=== PATIENT | female | born 1930 | race Caucasian/White ===

== ENCOUNTER 2018-04-09 20:17 | Inpatient (IN) ==
[2018-04-10] MEDS ORDERED: Acetaminophen 325 MG TABLET PO PRN (02:30)
[2018-04-10] MEDS ORDERED: *HR* FentaNYL (PF) 100 MCG/2 ML VIAL IVP PRN (02:30)
[2018-04-10] MEDS ORDERED: Naloxone 0.4 MG/ML INJ IVP PRN (02:30)
--- NOTE | 2018-04-10 03:08 | Internal Med History&Physical ---
Date of Encounter: 04/10/18 Time of Encounter: 01:15 Internal Medicine - H&P: HPI Chief complaint: hip pain/fracture Admitted From: Hospital to Hospital Transfer Plans for Post Hospital Care: Transfer Inp Rehab Fac History of present illness: Ms. MEDINA is a 88 year old female who presents in transfer from [facility] ER after she was found to have a left intertrochanteric fracture on CT imaging of her hip. She was seen last week at the ER after sustaining a fall while walking her dog. X-ray imaging at that point was negative. She was discharged home and remained ambulatory despite having injured her hip. Her pain became extremely unbearable, especially over the last 24 hours. Therefore, her daughter brought her back to the ER tonight where they did CT imaging and found the hip fracture. She was transferred here to hospitalist service with orthopedic consult. Presently, she has good pain control and denies any problems. She has minimal medical history other than hypertension and hyperlipidemia. She denies any heart disease. She denies any exertional dyspnea or chest pain. Past Med Surg Social Fam HX - Past Medical History Attestation: Yes The following information was validated with the patient. Source: patient, old records reviewed, obtained from family Medical history: hyperlipidemia, hypertension Psychiatric history: no psych history - Past Surgical History Surgical History: appendectomy, hysterectomy Additional surgical history: lasik eye surgery 2009 - Social History Smoking Status: Never smoker Smokeless Tobacco Status: No Alcohol use: none Drug use: none Current living situation: Home, With Family Activity Level: Independent ambulation Recent Out of Country Travel Within the Last 8 Weeks: No - Family History Father History Unknown: Yes Living Status: Hx Family Cardiac Disorders: Yes ( of a stroke) Internal Medicine - H&P: Meds Atorvastatin [Lipitor] 10 mg PO DAILY 04/10/18 [History] Ibuprofen [Ibu] 600 mg PO Q6HR PRN 04/10/18 [History] amLODIPine [Norvasc] 5 mg PO DAILY 04/10/18 [History] traZODone [TraZODone] 0.5 tab PO HS 04/10/18 [History] 3 Allergy/AdvReac Type Severity Reaction Status Date / Time Sulfa (Sulfonamide Allergy Unknown Rash Verified 04/10/18 00:17 Antibiotics) - Constitutional Constitutional: no chills, no fever(s), no night sweats - EENT Eyes: no blurry vision, no change in vision Ears: no ear pain, no tinnitus Nose, mouth and throat: no nasal congestion, no sinus pressure, no sore throat - Cardiovascular Cardiovascular ROS IM: no chest pain, no dyspnea, no dyspnea on exertion, no lightheadedness, no orthopnea, no palpitations, no syncope - Respiratory Respiratory: no cough, no hemoptysis, no chest congestion, no excessive phlegm production, no change in phlegm color - Gastrointestinal Gastrointestinal: no abdominal pain, no diarrhea, no hematemesis, no hematochezia, no melena, no nausea, no vomiting - Genitourinary Genitourinary: no dysuria, no flank pain, no hematuria - Musculoskeletal Musculoskeletal ROS IM: arthralgias, limited range of motion, no back pain Additional comments: left hip pain/limited ROM - Integumentary Integumentary IM: no rash, no jaundice - Neurological Neurological ROS: frequent falls, no convulsions, no disequilibrium, no dizziness, no focal weakness, no headache(s), no vertigo - Psychiatric Psychiatric: no anxiety, no depression - Endocrine Endocrine IM: no cold intolerance, no heat intolerance, no polydipsia, no polyphagia, no polyuria - Allergic/Immunologic Allergic/Immunologic: no GI upset with certain foods - Constitutional Vitals: Temp Pulse Resp BP Pulse Ox 97.8 F 91 16 157/79 94 04/10/18 00:13 04/10/18 00:13 04/10/18 00:13 04/10/18 00:13 04/10/18 00:13 General appearance: Present: cooperative, mild distress, A&O X 3, pleasant, answers questions appropriately Exam: see below - Head Head exam: Present: atraumatic, normal inspection - Eye Eye exam: Present: EOMI, PERRL. Absent: scleral icterus Pupils: Present: normal accommodation - ENT ENT exam: Present: mucous membranes dry, normal oropharynx - Neck Neck exam general surgery: Present: full ROM, supple. Absent: tenderness, nuchal rigidity, thyromegaly - Expanded Neck Exam Neck exam: Absent: carotid bruit - Respiratory Respiratory exam: Present: CTAB. Absent: chest wall tenderness, rales, respiratory distress, rhonchi, wheezes - Cardiovascular Cardiovascular exam: Present: RRR, +S1, +S2, systolic murmur (grade 2 -3 type murmur). Absent: diastolic murmur - GI/Abdominal GI/Abdominal exam: Present: normal bowel sounds, soft. Absent: hepatomegaly, mass, tenderness - Extremities Exam Extremities exam: Present: normal capillary refill, tenderness (left hip), warm , radial pulses palpable and symmetrical. Absent: pedal edema - Neurological Exam Neurological exam: Present: alert, CN II-XII intact, oriented X3, no focal deficits - Psychiatric Psychiatric exam: Present: normal affect, normal mood - Skin Skin exam: Present: dry, warm. Absent: rash Internal Med - H&P Results - Labs Labs: I reviewed the labs from [place] include the following: WBC 15.2 Hemoglobin 14.0 Hematocrit 41.5 Platelets 294 Sodium 137 Potassium 3.8 Chloride 101 Carbon Dioxide 25 Glucose 145 BUN 16 Creatinine 0.72 EKG normal sinus rhythm with no acute findings CT scan pelvis showing left intertrochanteric fracture - Assessment and plan (1) Fracture, intertrochanteric, left femur Current Visit: Yes Status: Acute Assessment and plan: 1. Pain control with oral [place] (moderate) and Fentanyl IV (severe). 2. Consult Dr. Wilder for surgical repair. 3. Patient will need inpatient rehab after surgery. Qualifiers: Encounter type: initial encounter Fracture type: closed Fracture alignment: displaced Qualified Code(s): S72.142A - Displaced intertrochanteric fracture of left femur, initial encounter for closed fracture (2) Murmur Current Visit: Yes Status: Chronic Assessment and plan: 1. Patient denies known history of murmur. 2. Will order ECHO to evaluate for possible aortic stenosis. 3. If patient has evidence of on ECHO, recommend cardiology consultation prior to proceeding with surgery. (3) Hypertension Current Visit: Yes Status: Chronic Assessment and plan: 1. Resume home meds and monitor BP. 2. Adjust meds as necessary. Qualifiers: Hypertension type: essential hypertension Qualified Code(s): I10 - Essential (primary) hypertension (4) DVT prophylaxis Current Visit: Yes Status: Acute Assessment and plan: 1. Heparin SQ.
[2018-04-10 03:57] LABS: Basophils # 0.1 K/mcL (0.0-0.2); Basophils % 0.6 %; Eosinophils # 0.1 K/mcL (0.0-0.6); Eosinophils % 1.1 %; Hematocrit 36.5 % (35.3-44.9); Hemoglobin 12.6 g/dL (11.5-15.4); Immature Granulocytes % 0.4 % (0-4); Lymphocytes # 2.8 K/mcL (0.6-4.6); Lymphocytes % 21.9 %; Mean Corpuscular HGB Conc 34.5 g/dL (31.6-35.5); Mean Corpuscular Hemoglobin 29.6 pg (28.0-33.3); Mean Corpuscular Volume 85.7 fL (83.0-100.0); Mean Platelet Volume 10.1 fL (9.4-12.4); Monocytes % 7.5 %; Neutrophils # 8.6 K/mcL (1.6-8.9); Platelet Count 265 K/mcL (140-400); Red Blood Count 4.26 M/mcL (3.82-4.97); Red Cell Distribution Width 13.6 % (11.5-14.5); Segmented Neutrophils % 68.5 %
[2018-04-10 04:05] LABS: Prothrombin Time 11.2 Seconds (9.4-12.1)
[2018-04-10 04:08] LABS: Activated Partial Thrombo Time 27.3 Seconds (26.0-36.0)
[2018-04-10 04:16] LABS: Alanine Aminotransferase 10 Units/L (7-52); Albumin 3.9 g/dL (3.5-5.7); Albumin/Globulin Ratio 1.3 (1.1-2.2); Alkaline Phosphatase 83 Units/L (34-104); Aspartate Amino Transferase 16 Units/L (13-39); BUN/Creatinine Ratio 24 (6-26); Bilirubin,Total 0.6 mg/dL (0.3-1.0); Blood Urea Nitrogen 13 mg/dL (8-23); Calcium 9.1 mg/dL (8.6-10.3); Carbon Dioxide 25 mEq/L (23-29); Chloride 101 mEq/L (98-107); Globulin 2.9 g/dL (2.4-3.5); Glucose 115 mg/dL (70-105); Magnesium 1.7 mg/dL (1.6-2.6); Osmolality,Calculated 279 (280-300); Sodium 134 mEq/L (136-145); Total Protein 6.8 g/dL (6.4-8.9); eGFR For Non-African Americans > 60 (> 60)
[2018-04-10] MEDS: *HR* HYDROcodone/Acet 5/325 mg TABLET PO PRN ×2 (04:31→17:45)
[2018-04-10] MEDS: 0.9 % Sodium Chloride 1,000 ML IVC SCH ×2 (04:31→17:42)
[2018-04-10] MEDS: *HR* Heparin 5,000 UNIT/ML VIAL SQ SCH ×2 (04:31→17:42)
[2018-04-10] MEDS: amLODIPine 5 MG TABLET PO SCH (08:10)
--- NOTE | 2018-04-10 08:28 | Event Note ---
Date of Encounter: 04/10/18 Time of Encounter: 09:15 Pt transferred here with Left hip fx.. pmhx htn, hld Ortho consulted and eval pending Found on admitting exam to have heart murmur. Pt comfortable in bed with daughter present. Nopain currently, + pain with movement. no cp, sob, palpitations, presyncope or syncope history. Overall feeling well and awaiting ortho eval gen- awake, alert, nad eyes- pupils equal round, eom intact cv- rrr, normal s1s2, + systolic murmur 3/6, no le edema no jvd lugs - ctabl , no rhonchi, wheezing or crackles msk- LLE shortened with ext rotation a/p Left hip fracture, pain control, bedrest, ortho eval New dx heart murmur- requires pre op echo to assess further, may require cards eval preop pending result HTN/hld - cont home meds Mild leukocytosis likely reactive, afebrile, ros neg for s/s of infection, cont to monitor Hypokalemia K 3.0- 40 meq PO kcl and recheck K level and a mag level this afternoon
--- NOTE | 2018-04-10 12:24 | Orthopedic Consult Note ---
Date of Encounter: 04/10/18 Time of Encounter: 12:13 History of Present Illness Chief complaint: Left hip pain HPI: Ms. Avelar is a 88 year old female who sustained an injury to her left hip when she fell on 04/03/18. She sustained a mechanical fall while walking her dog. At that time she was seen at [facility]. X-rays were performed that failed to reveal a fracture. She also had a CT exam performed at that time there was also not definitive for fracture. Patient persisted in having left hip pain over the past week. Its unsure if she had a second fall but had worsening of the left hip pain and return to [facility] yesterday. X-ray was taken followed by CT scan and the fracture was identified. It was reported the patient had a nondisplaced intertrochanteric fracture. She was transferred to [facility] for definitive management. Completed history and physical exam is reviewed as well as the contents of the formal medical record. Vital signs are stable. Patient is afebrile. Examination reveals a pleasant 88 -year-old woman in no distress while lying in the hospital bed. Left lower extremity is remarkably shortened with mild external rotation. Pain is elicited with any attempts examination of the extremity. Distal neurosensory exam is grossly intact. I reviewed x-rays from [facility] from [id number] , these reveal some arthritic changes but no definitive hip fracture. A CT scan from the same date is also not definitive for fracture. There are some findings to suggest fracture, a valgus head position and subtle cortical changes and irregularities in the posterior superior neck. The patient does have significant lumbar spondylosis with tremendous degenerative disc disease with vacuum phenomena. X-rays from yesterday, [id number] reveal a displaced femoral neck fracture with marked shortening and proximal migration of the shaft. CT scan confirms these findings. Impression: Displaced left femoral neck fracture Recommendation: I had a long discussion with the patient and her daughters in regards to the fracture and the treatment options. This is a surgical fracture and my recommendation would be to proceed with a hemiarthroplasty of the hip versus any attempts at reduction and fixation. They understand that this is a more involved surgical procedure would allow her to begin full weightbearing ambulation and avoid any risks of nonunion or avascular necrosis associated with screw fixation of the hip. We discussed the surgery at length including the potential risks and complications but not limited to bleeding, infection, blood clots, nerve injury, stiffness, leg length or rotational deformities or even possible dislocation. They all understand and agree with the surgery as outlined. Informed consent was obtained. We will schedule her for surgery tomorrow morning. The patient is currently having an echocardiogram performed due to a newly diagnosed murmur. If the patient is not optimized for surgery would delay as needed. Thank you very much for allowing me to see and care for Mrs. Avelar. Sincerely , Braden Wilder.DO Past Med Surg Social Fam HX - Past Medical History Medical history: hyperlipidemia, hypertension Psychiatric history: no psych history - Past Surgical History Surgical History: appendectomy, hysterectomy Additional surgical history: lasik eye surgery 2009 - Social History Smoking Status: Never smoker Smokeless Tobacco Status: No Alcohol use: none Drug use: none - Family History Father History Unknown: Yes Living Status: Hx Family Cardiac Disorders: Yes ( of a stroke) Medications and Allergies Atorvastatin [Lipitor] 10 mg PO DAILY 04/10/18 [History] Ibuprofen [Ibu] 600 mg PO Q6HR PRN 04/10/18 [History] amLODIPine [Norvasc] 5 mg PO DAILY 04/10/18 [History] traZODone [TraZODone] 0.5 tab PO HS 04/10/18 [History] 3 Allergy/AdvReac Type Severity Reaction Status Date / Time Sulfa (Sulfonamide Allergy Unknown Rash Verified 04/10/18 00:17 Antibiotics) All Systems Reviewed: The remainder of the systems were reviewed and are negative Physical Exam - Constitutional Vitals: Temp Pulse Resp BP Pulse Ox 98.3 F 81 16 136/79 93 04/10/18 10:56 04/10/18 10:56 04/10/18 10:56 04/10/18 10:56 04/10/18 10:56 Results - Labs Result Diagrams: 04/10/18 03:42 04/10/18 03:42 Labs: Abnormal lab results WBC 12.6 K/mcL (4.3-11.1) H 04/10/18 03:42 Sodium 134 mEq/L (136-145) L 04/10/18 03:42 Potassium 3.0 mEq/L (3.5-5.1) L 04/10/18 03:42 Creatinine 0.55 mg/dL (0.60-1.20) L 04/10/18 03:42 Glucose 115 mg/dL (70-105) H 04/10/18 03:42 Calculated Osmolality 279 (280-300) L 04/10/18 03:42 H & H 04/10/18 Range/Units 03:42 Hgb 12.6 (11.5-15.4) g/dL Hct 36.5 (35.3-44.9) % All other labs normal. - Diagnostic results Hip AP/Lateral x-ray: image reviewed Hip CT: image reviewed Consult Discharge Plan - Plan Referrals: Nitesh Martinez [Primary Care Provider] -
[2018-04-10 13:20] LABS: Magnesium 1.7 mg/dL (1.6-2.6); Potassium 3.6 mEq/L (3.5-5.1)
[2018-04-11 02:08] LABS: Basophils # 0.1 K/mcL (0.0-0.2); Basophils % 0.8 %; Eosinophils # 0.3 K/mcL (0.0-0.6); Eosinophils % 2.3 %; Hematocrit 37.5 % (35.3-44.9); Hemoglobin 12.8 g/dL (11.5-15.4); Immature Granulocytes % 0.3 % (0-4); Lymphocytes # 3.1 K/mcL (0.6-4.6); Lymphocytes % 23.3 %; Mean Corpuscular HGB Conc 34.1 g/dL (31.6-35.5); Mean Corpuscular Hemoglobin 29.6 pg (28.0-33.3); Mean Corpuscular Volume 86.8 fL (83.0-100.0); Mean Platelet Volume 10.6 fL (9.4-12.4); Monocytes # 1.1 K/mcL (0.0-1.3); Monocytes % 8.5 %; Neutrophils # 8.5 K/mcL (1.6-8.9); Platelet Count 281 K/mcL (140-400); Red Blood Count 4.32 M/mcL (3.82-4.97); Red Cell Distribution Width 13.6 % (11.5-14.5); Segmented Neutrophils % 64.8 %
[2018-04-11 02:27] LABS: BUN/Creatinine Ratio 19 (6-26); Blood Urea Nitrogen 10 mg/dL (8-23); Carbon Dioxide 26 mEq/L (23-29); Chloride 103 mEq/L (98-107); Glucose 113 mg/dL (70-105); Magnesium 1.7 mg/dL (1.6-2.6); Osmolality,Calculated 284 (280-300); Potassium 3.3 mEq/L (3.5-5.1); Sodium 137 mEq/L (136-145); eGFR For Non-African Americans > 60 (> 60)
[2018-04-11] MEDS: *HR* HYDROcodone/Acet 5/325 mg TABLET PO PRN ×2 (04:08→08:14)
[2018-04-11] MEDS: amLODIPine 5 MG TABLET PO SCH (08:07)
--- NOTE | 2018-04-11 08:10 | Cardiology Consult Note ---
Date of Encounter: 04/11/18 Time of Encounter: 08:07 Assessment and Plan (1) Preoperative cardiovascular examination Current Visit: Yes Status: Acute Patient with left hip fracture and reasonable functional status. Although unclear if she could perform more than 4 METs prior to sustaining the fracture. She has no active cardiac conditions at this time. EKG shows sinus rhythm with non specific ST-T changes. Her echocardiogram shows EF of 65%, moderately calcified aortic valve leaflets. Moderate aortic stenosis with valve area of 1.4 cm, peak gradients of 24mmHg. She is at low to intermediate risk for cardiac events perioperatively. She may proceed with surgery with acceptable risks. Recommend cautious fluid managements and post-operative surveillance. Replace electrolytes. Hold amlodipine on the morning of surgery. (2) Hypertension Current Visit: Yes Status: Chronic Continue amlodipine and hold on the morning of surgery. Blood pressure goal 130 mmHg - 150mmHg systolic. Qualifiers: Hypertension type: essential hypertension Qualified Code(s): I10 - Essential (primary) hypertension (3) Moderate aortic stenosis Current Visit: Yes Status: Acute Moderate aortic stenosis with peak gradients of 24mmHg and valve area of 1.4cm2. She is asymptomatic at this time. Repeat echo in 6-12 months. (4) HLD (hyperlipidemia) Current Visit: Yes Status: Chronic Continue statin. Qualifiers: Qualified Code(s): E78.5 - Hyperlipidemia, unspecified Discussion w patient/family: The assessment and plan as outlined above was discussed with the patient and/or family members who expressed understanding and agreement. All questions were answered. Thank you for involving us in the care of your patient. Please call with any questions. History of Present Illness Consult date: 04/11/18 Requesting physician: Zarina Whitmore Consult reason: Preop cardiac evaluation Chief complaint: Hip fracture History of present illness: Ms. Avelar is a 88 year old pleasant female with hx of hypertension, hyperlipidemia, mild cognitive dysfunction, admitted for left intertrochanteric fracture after sustaining a mechanical fall about a week ago. S she denies she denies chest pain or palpitations prior to falling. Family says patient's is able to walk her dog's and on take care of ADLs. As at last year when she was still living at senior home she was able to climb up 2 flights of stairs. She has no history of coronary artery disease. Her last surgery was in 1970 for section/hysterectomy. Past Med Surg Social Fam HX - Past Medical History Medical history: hyperlipidemia, hypertension Psychiatric history: no psych history - Past Surgical History Surgical History: appendectomy, hysterectomy Additional surgical history: lasik eye surgery 2009 - Social History Smoking Status: Never smoker Smokeless Tobacco Status: No Alcohol use: none Drug use: none - Family History Father History Unknown: Yes Living Status: Hx Family Cardiac Disorders: Yes ( of a stroke) Medications and Allergies Atorvastatin [Lipitor] 10 mg PO DAILY 04/10/18 [History] Ibuprofen [Ibu] 600 mg PO Q6HR PRN 04/10/18 [History] amLODIPine [Norvasc] 5 mg PO DAILY 04/10/18 [History] traZODone [TraZODone] 0.5 tab PO HS 04/10/18 [History] 3 Allergy/AdvReac Type Severity Reaction Status Date / Time Sulfa (Sulfonamide Allergy Unknown Rash Verified 04/10/18 00:17 Antibiotics) All Systems Review: The remainder of the systems were reviewed and are negative - Constitutional Constitutional: no anorexia, no fever(s), no weakness - EENT Eyes: no loss of vision Nose, mouth and throat: no bleeding gums, no odynophagia - Cardiovascular Cardiovascular: no chest pain at rest, no chest pain with exertion, no irregular heart rhythm, no palpitations, no syncope - Respiratory Respiratory: no cough, no wheezing - Gastrointestinal Gastrointestinal: no abdominal pain - Genitourinary Genitourinary: no dysuria - Musculoskeletal Musculoskeletal: no abnormal gait - Integumentary Integumentary: no erythema - Neurological Neurological: no abnormal speech - Psychiatric Psychiatric: no anxiety Physical Examination General: Conversant HEENT: Atraumatic Neck: No JVD Cardiac: Reg Rate and Rhythm, Other (grade 3/6, ejection systolic murmur at the base radiating to the carotid. Soft A2) Lungs: Normal Breath Sounds, No Wheeze, Rales, Rhonchi Neuro: Alert and responsive Abdomen: Soft, Non-Tender Musculoskeletal: No Chest Wall Tenderness Extremities: No Edema Results 04/11/18 01:05 04/11/18 01:05 Lab Results 04/10/18 04/11/18 04/11/18 12:51 01:05 01:05 WBC 13.1 H Hgb 12.8 Hct 37.5 Plt Count 281 INR 1.0 Sodium Potassium 3.6 Chloride Carbon Dioxide BUN Creatinine Glucose Calcium Magnesium 1.7 04/11/18 01:05 WBC Hgb Hct Plt Count INR Sodium 137 Potassium 3.3 L Chloride 103 Carbon Dioxide 26 BUN 10 Creatinine 0.53 L Glucose 113 H Calcium 9.0 Magnesium 1.7 Consult Discharge Plan - Plan Referrals: Nitesh Martinez [Primary Care Provider] -
--- NOTE | 2018-04-11 08:32 | Internal Med Progress Note ---
Hospitalist Progress Note - Encounter Date of Encounter: 04/11/18 Time of Encounter: 10:15 - Subjective Interval History: awake, family at bedside. painwith any movmeent of hip otherwise no complaints. pain controlled with ordered meds. no cp, palitations, sob, wheezing or orthopnea. no le edema. - Exam Vitals: Temp Pulse Resp BP Pulse Ox 98.2 F 108 17 152/74 93 04/11/18 08:08 04/11/18 08:08 04/11/18 08:08 04/11/18 08:08 04/11/18 08:12 Exam: General: awake, alert, appears stated age HEENT:pupils equal, round, moist mucus membranes Neck: supple, trachea midline Cardiovascular:regular rate and rhythm, normal S1 & S2, + SM iii/vi. No JVD. no lower extremity edema, dp/pt pulses intact and equal Lungs:Normal breath sounds, no wheezes, or crackles. Normal respiratory effort on ra Abdomen:Soft, non-tender, non-distended, + bowel sounds MSK: LLE shortened and ext rotated, rom not tested Neurological: AAOx3, BL LE sensatio nintact and equal to lt touch Skin:Normal color, no pallor - Assessment and Plan (1) Fracture, intertrochanteric, left femur Current Visit: Yes Status: Acute Assessment and Plan: -ortho following -OR 04/11 pending cards clearance -prn pain control -post op care as per ortho -pt.ot.sw (2) Murmur Current Visit: Yes Status: Acute Assessment and Plan: Systolic Murmur 2/2 Moderate -echo obtained and revealed EF of 65%, moderately calcified aortic valve leaflets. Moderate aortic stenosis with peak and mean gradients of 24mmHg 12mmHg mmHg, respectively -cards contacted for pre op eval - may proceed with surgery with acceptable risks, CAUTIOUS POST OP FLUID MANAGEMENT -this pt SHOULD NOT RECEIVE NITRATES given (3) Hypertension Current Visit: Yes Status: Chronic Assessment and Plan: -cont home norvasc -monito bp trends -prn pain control (4) HLD (hyperlipidemia) Current Visit: Yes Status: Chronic Assessment and Plan: cont statin (5) Leukocytosis Current Visit: Yes Status: Acute Assessment and Plan: suspect reactive given fx, mild WBC 12.6 will cont to monitor ros is neg for s/s or infection, afebrile (6) Hypokalemia Current Visit: Yes Status: Acute Assessment and Plan: PO repletion and cont to monitor mag wnl (7) DVT prophylaxis Current Visit: Yes Status: Acute Assessment and Plan: Heparin SQ. - Time Spent with Patient Total time spent is greater than 50% in coordination of care (as documented) at patient's floor/unit and/or counseling patient: Internal Medicine: Result - Labs CBC & Chem 7: 04/11/18 01:05 04/11/18 01:05 Labs: Short CBC 04/11/18 Range/Units 01:05 WBC 13.1 H (4.3-11.1) K/mcL Hgb 12.8 (11.5-15.4) g/dL Hct 37.5 (35.3-44.9) % Plt Count 281 (140-400) K/mcL Neutrophils # 8.5 (1.6-8.9) K/mcL BMP 04/10/18 04/11/18 12:51 01:05 Sodium 137 Potassium 3.6 3.3 L Chloride 103 Carbon Dioxide 26 BUN 10 Creatinine 0.53 L Glucose 113 H Calcium 9.0 - ABG Interpretation ABG results: PT/INR, D-dimer PT 11.0 Seconds (9.4-12.1) 04/11/18 01:05 - Impressions Impressions Echocardiogram 04/10/18 02:30 Impressions: LVEF 65% Mild concentric left ventricular hypertrophy. Basal sigmoid septum. Mild left ventricular diastolic dysfunction. Normal right ventricular structure and function. Trileaflet aortic valve. Moderately calcified aortic valve leaflets. Moderate aortic stenosis with peak and mean gradients of 24mmHg 12mmHg mmHg, respectively. Unable to estimate RVSP due to lack of TR jet. Left Ventricular Wall Motion: Rest Echo Findings All wall segments showed normal motion. Findings: Study Quality * Technically adequate exam. ECG Findings * Normal sinus rhythm. Left Ventricle * LVEF 65% * Mild concentric left ventricular hypertrophy. * Basal sigmoid septum. * Mild left ventricular diastolic dysfunction. Right Ventricle * Normal right ventricular structure and function. Left Atrium * Normal left atrial size. Right Atrium * Normal right atrial size. Interatrial Septum * No evidence of PFO by color Doppler. Aortic Valve * Trileaflet aortic valve. * Moderately calcified aortic valve leaflets. * Moderate aortic stenosis. * Peak and mean gradients are 24mmHg 12mmHg mmHg, respectively. Mitral Valve * Normal mitral valve structure and function. * No mitral regurgitation. * No mitral stenosis. Tricuspid Valve * Normal tricuspid valve structure and function. * No tricuspid regurgitation. * No tricuspid stenosis. * Unable to estimate RVSP due to lack of TR jet. Pulmonic Valve * Normal pulmonic valve structure and function. * No pulmonic regurgitation. Aorta * Normally sized aortic root. Pericardium * There is a trivial pericardial effusion present. IVC * Normal IVC dimensions and inspiratory collapse. Pulmonary Artery * Normal visualized portions of the main pulmonary artery. Consult Discharge Plan - Plan Referrals: Nitesh Martinez [Primary Care Provider] - (1) Fracture, intertrochanteric, left femur Qualifiers: Encounter type: initial encounter Fracture type: closed Fracture alignment: displaced Qualified Code(s): S72.142A - Displaced intertrochanteric fracture of left femur, initial encounter for closed fracture (3) Hypertension Qualifiers: Hypertension type: essential hypertension Qualified Code(s): I10 - Essential (primary) hypertension
[2018-04-11] MEDS ORDERED: Potassium Chloride Elixir 20 MEQ/15 ML UDC PO ONE (08:34)
--- NOTE | 2018-04-11 12:51 | Anesthesia Evaluation PreOp ---
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 Other Medical History: Denies Any Significant HX Anesthesia History: No Prior Anesthetic Complications, Past Anesthesia Alcohol Use: none Drug use: none Medications and Allergies Atorvastatin [Lipitor] 10 mg PO DAILY 04/10/18 [History] Ibuprofen [Ibu] 600 mg PO Q6HR PRN 04/10/18 [History] amLODIPine [Norvasc] 5 mg PO DAILY 04/10/18 [History] traZODone [TraZODone] 0.5 tab PO HS 04/10/18 [History] 3 Allergy/AdvReac Type Severity Reaction Status Date / Time Sulfa (Sulfonamide Allergy Unknown Rash Verified 04/10/18 00:17 Antibiotics) - Meds/Allergy Pre-op Review Medications Reviewed: Yes Allergies Reviewed: Yes Beta Blockers on Current Med List: No Anesthesia Results - Labs 04/11/18 01:05 04/11/18 01:05 - Imaging Additional studies: ECHO 65%, AV area 1.3 Record Center Specialist clearance, minimal risk for surgery. Anesthesia Exam Selected Entries 04/11/18 11:16 Temperature 97.6 F Pulse Rate 79 Respiratory Rate 16 Blood Pressure 131/72 O2 Sat by Pulse Oximetry 96 Weight: 60 kg NPO (# of Hours): over 8 hours - HEENT Pupil (Motor): Pupils equal Mallampati: I Teeth: Edentulous Oral Opening: Greater than 3 - Cardiac Rhythm: Regular Murmur: None - Pulmonary Breath Sounds: bilateral Clear Respiratory Effort: Symmetrical Anesthesia Assess/Plan ASA Score: 3 Modified Kane Scale for Level of Consciousness: Cooperative, oriented, and tranquil Anesthetic Plan: General Monitoring Plan: Standard Monitors Recovery Plan: PACU (Discussed GA, risks. Agreed to proceed.)
[2018-04-11] MEDS ORDERED: *HR* FentaNYL (PF) 100 MCG/2 ML VIAL ONE (13:36)
[2018-04-11] MEDS ORDERED: *HR* Succinylcholine 200 MG/10 ML VIAL IVP ONE (13:36)
[2018-04-11] MEDS ORDERED: *HR* Propofol 200 MG/20 ML VIAL IVP ONE (13:36)
[2018-04-11] MEDS ORDERED: Ondansetron 4 MG/2 ML VIAL ONE (13:36)
[2018-04-11] MEDS ORDERED: Lidocaine -MPF 2% 2 ML VIAL ONE (13:36)
[2018-04-11] MEDS ORDERED: *HR* Phenylephrine 10 MG/ML VIAL ONE (13:36)
[2018-04-11] MEDS ORDERED: Lidocaine -MPF 4% 5 ML AMPUL ONE (13:36)
[2018-04-11] MEDS ORDERED: *HR* PHENYLEPHRINE 1,000 MCG/10 ML SYRINGE IVP ONE (13:36)
[2018-04-11] MEDS ORDERED: Dexamethasone 4 MG/ML VIAL ONE (13:36)
[2018-04-11] MEDS ORDERED: Ondansetron 4 MG/2 ML VIAL IVP ONE ×2 (14:04→16:22)
[2018-04-11] MEDS ORDERED: *HR* OxyCODONE Immed Rel 5 MG TABLET PO PRN ×2 (14:04→16:22)
[2018-04-11] MEDS ORDERED: *HR* Morphine 2 MG/ML SYRINGE IVP PRN ×2 (14:04→16:22)
[2018-04-11] MEDS ORDERED: *HR* Labetalol 20 MG/4 ML SYRINGE IVP PRN ×2 (14:04→16:22)
[2018-04-11] MEDS ORDERED: Ringers Solution, Lactated 1,000 ML IVC SCH (14:15)
--- NOTE | 2018-04-11 16:02 | Operative Note ---
Date of procedure: 04/11/18 Pre-op diagnosis: Left femoral neck fracture Post-op diagnosis: same Procedure: Hemiarthroplasty left hip Implants: Cemented Fouzia 12 LD/FX femoral component with a 10 mm distal centralizer, neutral neck adapter and a 46 mm unipolar endoprosthesis Complications: None Anesthesia: ELISA Surgeon: Braden Wilder Was there an salon shampoo assistant present: No Estimated blood loss (cc): 200 Specimen: None Condition: stable Disposition: PACU Procedure in Detail: Gross findings: Preoperative x-rays and CT scan revealed a displaced fracture of the left femoral neck in this 88-year-old female. Some osteoporotic changes noted. Intraoperative findings were as anticipated with a displaced femoral neck fracture identified. Some tearing away of the gluteus medius superiorly and the gluteus minimus inferiorly was noted. Some prominent spurring on the trochanter was identified. There was some comminution of the posterior neck. A cemented unipolar hemiarthroplasty was performed without complicating features. After placement of the prosthesis a stable well-functioning hip was noted without any tendencies toward subluxation or dislocation. Procedure: Patient is taken the operating room and while the hospital bed was administered general anesthesia. Once adequate level of anesthesia have been obtained patient was transferred to the operating table and placed in the lateral recumbent position with the left side up. She was stabilized with a lateral hip stabilizing system with all pressure points well-padded. Left hip was now prepped and draped in normal standard fashion for surgery. A lateral hip incision was created. Dissection was carried through subtendinous tissue down the level of fascia gagan which was now clear to split length the incision. Charnley retractor was placed maintaining exposure. At this time the anterior abductors were taken down off the trochanter with subperiosteal manner utilizing electrocautery knife. These were tagged with #2 FiberWire suture for traction of later repair. Capsule was likewise taken down off the trochanter and superior capsulotomy was made up the level of the acetabulum. Fracture hematoma was encountered and evacuated. Neck osteotomy was made. Femoral head was now removed from the acetabulum and sized to a probably a 45 or 46. Acetabulum was irrigated and debrided with pulsatile lavage and mechanical debridement. Final sizing was performed and a 46 mm head size was selected. Attention was now turned to the femur. Box osteotome was utilized to open up the medial trochanter. T-handled reamers passed down the femoral canal. The femur was now rasped up to and including the size 12 rasp with sat just about the level of the osteotomy. Calcar was reamed with power reamers. Trialing was performed and a neutral neck length was appropriate. All trial components removed from the hip. Hip was packed with a dry sponge. Cement restrictor was placed about 140 mm and then the femoral canal was irrigated with pulsatile lavage and then dried with a combination of suction and sponges. Cement was mixed and at appropriate time the cement was instilled into the femur which was filled in a retrograde manner and then pressurized proximally. The femoral component was then placed into the cement and impacted until it sat with the collar firmly on the medial femoral calcar neutral position. Excess cement was trimmed away. Cement was allowed to fully hardened. Final cement cleanup was performed. This is followed by placing the adapter and the femoral head onto the femoral component and impacted with 3 sharp blows of the mallet. Hip was now reduced and a stable reduction was obtained. Capsulotomy was closed with #2 FiberWire. The bare area on the trochanter was debrided to cancellus bone. Prominent spurs on the trochanter were resected with rongeur. The abductors were then repaired back to the trochanter with previously placed #2 FiberWire suture and reinforced with running #2 strata fix. Fascia gagan was then closed with several [id number] stitch of #2 FiberWire followed by running #2 strata fix. Deep subtendinous tissue was closed with running #1 Vicryl. Medius obtained his tissues and closed with multiple inverted interrupted 2-0 undyed Vicryl followed by skin approximation with a running septic her stitches of 3-0 strata fix.. Skin glue was applied. Operative foam was now applied and secured. Patient was now placed into a abduction pillow. Patient was then transferred from the operating table hospital bed and transported to the postanesthesia care unit in stable and satisfactory condition. All sponge needle and isthmic counts are correct. No specimens are sent for pathology.
[2018-04-11] MEDS ORDERED: Acetaminophen 325 MG TABLET PO PRN (16:22)
[2018-04-11] MEDS ORDERED: Naloxone 0.4 MG/ML INJ IVP PRN (16:22)
--- NOTE | 2018-04-11 16:27 | Anesthesia Evaluation Post Op ---
Date of Encounter: 04/11/18 Time of Encounter: 16:30 - Vital Signs Vital Signs: P 100 B/P 172/95, 95% - Lungs Lungs: Clear Ascult./Percussion - Airway Airway: Non-obstructed - Cardiovascular Regular Rate - Mental Status Mental Status: Confused - Nausea Vomiting Nausea Vomiting: Not Present - Hydration Hydration: NPO Notes: 04/11/18 16:26 Slightly confused. Thinks she is in [place]. This level of confusion not unusual in this age group. - Discharge PostOp Status: Transfer Patient to floor
[2018-04-11] MEDS: Ringers Solution, Lactated 1,000 ML IVC SCH ×2 (16:38→20:07)
[2018-04-11] MEDS ORDERED: Menthol 9.1 MG LOZENGE PO PRN (23:28)
[2018-04-12] MEDS: *HR* HYDROcodone/Acet 5/325 mg TABLET PO PRN ×3 (01:02→15:24)
[2018-04-12 02:01] LABS: Basophils % 0.2 %; Hematocrit 37.3 % (35.3-44.9); Hemoglobin 12.9 g/dL (11.5-15.4); Immature Granulocytes % 0.6 % (0-4); Lymphocytes # 0.8 K/mcL (0.6-4.6); Lymphocytes % 6.5 %; Mean Corpuscular HGB Conc 34.6 g/dL (31.6-35.5); Mean Corpuscular Hemoglobin 30.4 pg (28.0-33.3); Mean Platelet Volume 10.6 fL (9.4-12.4); Monocytes % 8.1 %; Neutrophils # 10.6 K/mcL (1.6-8.9); Platelet Count 276 K/mcL (140-400); Red Blood Count 4.24 M/mcL (3.82-4.97); Red Cell Distribution Width 13.2 % (11.5-14.5); Segmented Neutrophils % 84.6 %
[2018-04-12 02:24] LABS: BUN/Creatinine Ratio 22 (6-26); Blood Urea Nitrogen 13 mg/dL (8-23); Carbon Dioxide 27 mEq/L (23-29); Chloride 101 mEq/L (98-107); Glucose 160 mg/dL (70-105); Magnesium 1.7 mg/dL (1.6-2.6); Osmolality,Calculated 284 (280-300); Potassium 4.2 mEq/L (3.5-5.1); Sodium 135 mEq/L (136-145); eGFR For Non-African Americans > 60 (> 60)
[2018-04-12] MEDS: *HR* Heparin 5,000 UNIT/ML VIAL SQ SCH ×2 (06:13→17:59)
[2018-04-12] MEDS: amLODIPine 5 MG TABLET PO SCH (08:17)
--- NOTE | 2018-04-12 09:46 | Internal Med Progress Note ---
Hospitalist Progress Note - Encounter Date of Encounter: 04/12/18 Time of Encounter: 10:30 - Subjective Interval History: awake in chair. Left hip pain with motion. + flatus, no bms. Eating and drinking without n/v. Dneies any chest pain, sob, fevers or chills. - Exam Vitals: Temp Pulse Resp BP Pulse Ox 98.0 F 84 16 175/89 96 04/12/18 06:33 04/12/18 06:04/12/18 06:04/12/18 06:04/12/18 08:25 Exam: General: awake, alert, appears stated age HEENT:pupils equal, round, moist mucus membranes Cardiovascular:regular rate and rhythm, normal S1 & S2, + SM iii/vi. no lower extremity edema, dp/pt pulses intact and equal Lungs:Normal breath sounds, no wheezes, or crackles. Normal respiratory effort on ra Abdomen:Soft, non-tender, non-distended, + bowel sounds MSK: LLE pain with hip rom, otherwise painless Neurological: AAOxperson, place, situation, BL LE sensation intact and equal to lt touch Skin:Normal color, no pallor, left hip incision site dressing c/d/i, no ecchymosis - Assessment and Plan (1) Fracture, intertrochanteric, left femur Current Visit: Yes Status: Acute Assessment and Plan: -ortho following -OR 04/11 Hemiarthroplasty left hip -prn pain control -post op care as per ortho -pt.ot.sw (2) Murmur Current Visit: Yes Status: Acute Assessment and Plan: Systolic Murmur 2/2 Moderate -echo obtained and revealed EF of 65%, moderately calcified aortic valve leaflets. Moderate aortic stenosis with peak and mean gradients of 24mmHg 12mmHg mmHg, respectively -cards contacted for pre op eval - may proceed with surgery with acceptable risks, CAUTIOUS POST OP FLUID MANAGEMENT -this pt SHOULD NOT RECEIVE NITRATES given (3) Hypertension Current Visit: Yes Status: Chronic Assessment and Plan: -cont home norvasc -monitor bp trends -prn pain control -adjust home med as needed (4) HLD (hyperlipidemia) Current Visit: Yes Status: Chronic Assessment and Plan: cont statin (5) Leukocytosis Current Visit: Yes Status: Acute Assessment and Plan: suspect reactive given fx, mild WBC 12.6, stable ros is neg for s/s or infection, afebrile (6) Hypokalemia Current Visit: Yes Status: Resolved Assessment and Plan: PO repletion and resolved mag wnl (7) DVT prophylaxis Current Visit: Yes Status: Acute Assessment and Plan: Heparin SQ. - Time Spent with Patient Total time spent is greater than 50% in coordination of care (as documented) at patient's floor/unit and/or counseling patient: 25 - 35 minutes Plan of Care Discussed with: patient Internal Medicine: Result - Labs CBC & Chem 7: 04/12/18 00:48 04/12/18 00:48 Labs: Short CBC 04/12/18 Range/Units 00:48 WBC 12.6 H (4.3-11.1) K/mcL Hgb 12.9 (11.5-15.4) g/dL Hct 37.3 (35.3-44.9) % Plt Count 276 (140-400) K/mcL Neutrophils # 10.6 H (1.6-8.9) K/mcL BMP 04/12/18 00:48 Sodium 135 L Potassium 4.2 D Chloride 101 Carbon Dioxide 27 BUN 13 Creatinine 0.60 Glucose 160 H Calcium 9.0 - ABG Interpretation ABG results: PT/INR, D-dimer PT 11.0 Seconds (9.4-12.1) 04/11/18 01:05 - Impressions Impressions Hip X-Ray 04/11/18 15:56 IMPRESSION: Unremarkable left hip radiographs status post bipolar left hip arthroplasty. D/ / Archie Grajeda / Archie Grajeda Interpreting Provider: Archie Grajeda Consult Discharge Plan - Plan Referrals: Nitesh Martinez [Primary Care Provider] - (1) Fracture, intertrochanteric, left femur Qualifiers: Encounter type: initial encounter Fracture type: closed Fracture alignment: displaced Qualified Code(s): S72.142A - Displaced intertrochanteric fracture of left femur, initial encounter for closed fracture (3) Hypertension Qualifiers: Hypertension type: essential hypertension Qualified Code(s): I10 - Essential (primary) hypertension
--- NOTE | 2018-04-12 17:16 | Electrocardiograph Report ---
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
--- NOTE | 2018-04-12 17:47 | Electrocardiograph Report ---
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
--- NOTE | 2018-04-12 20:50 | Orthopedics Progress Note ---
Date of Encounter: 04/12/18 Time of Encounter: 20:46 Subjective Principal diagnosis: Left hip fracture Interval history: 04/12/2018. Patient is postop day #1 hemiarthroplasty of the left hip secondary to a displaced femoral neck fracture. Patient has been out of bed to chair. Limited ambulation thus far. Complaining of anticipated pain. Vital signs are stable. Patient is afebrile. Incision is clean and dry. Neurovascular exam is intact. Hemoglobin nearly 13. Impression: POD #1 hemiarthroplasty left hip Recommendation: Begin ambulation with weightbearing as tolerated. Need to maintain total hip arthroplasty precautions. Recheck labs in a.m. 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 Objective Vital signs: Vital Signs Temp Pulse Resp BP Pulse Ox 04/12/18 18:52 98.3 F 86 18 132/69 93 04/12/18 14:56 98.2 F 61 18 154/86 93 04/12/18 10:40 97.8 F 84 18 144/80 96 04/12/18 08:25 96 04/12/18 06:33 98.0 F 84 16 175/89 94 04/12/18 03:43 98.0 F 87 16 163/71 96 04/11/18 23:11 99.1 F 93 16 147/75 99 Intake and Output 04/12/18 04/12/18 04/12/18 07:59 15:59 23:59 Intake Total 1350 / 1350 120 / 120 Output Total 225 / 225 0 / 0 Balance 1125 / 1125 120 / 120 Intake: IV Fluids 1200 / 1200 Ancef 2,000 MG In 0.9 % Sodium 100 / 100 Chloride 100 ML @ 200 mls/hr IVPB Q8HR [facility] Rx#:[id number] Oral 150 / 150 120 / 120 Output: Urine 0 / 0 Catheter 225 / 225 Other: Meal Dinner Percent of Meal Consumed 85% # Voids 1 Weight 60.98 kg Patient Weight 04/12/18 23:59 Weight 60.98 kg - Labs CBC & BMP: 04/12/18 00:48 04/12/18 00:48 Labs: Abnormal lab results WBC 12.6 K/mcL (4.3-11.1) H 04/12/18 00:48 Neutrophils # 10.6 K/mcL (1.6-8.9) H 04/12/18 00:48 Sodium 135 mEq/L (136-145) L 04/12/18 00:48 Glucose 160 mg/dL (70-105) H 04/12/18 00:48 Consult Discharge Plan - Plan Referrals: Nitesh Martinez [Primary Care Provider] -
[2018-04-12] MEDS: *HR* FentaNYL (PF) 100 MCG/2 ML VIAL IVP PRN (21:25)
[2018-04-13 01:51] LABS: Basophils # 0.1 K/mcL (0.0-0.2); Basophils % 0.5 %; Eosinophils # 0.2 K/mcL (0.0-0.6); Eosinophils % 1.6 %; Hematocrit 33.5 % (35.3-44.9); Immature Granulocytes % 0.5 % (0-4); Lymphocytes # 2.3 K/mcL (0.6-4.6); Lymphocytes % 18.6 %; Mean Corpuscular HGB Conc 33.7 g/dL (31.6-35.5); Mean Corpuscular Hemoglobin 29.6 pg (28.0-33.3); Mean Corpuscular Volume 87.7 fL (83.0-100.0); Mean Platelet Volume 10.6 fL (9.4-12.4); Monocytes # 1.1 K/mcL (0.0-1.3); Monocytes % 8.7 %; Neutrophils # 8.8 K/mcL (1.6-8.9); Platelet Count 283 K/mcL (140-400); Red Blood Count 3.82 M/mcL (3.82-4.97); Red Cell Distribution Width 13.5 % (11.5-14.5); Segmented Neutrophils % 70.1 %
[2018-04-13 01:54] LABS: Hemoglobin 11.3 g/dL (11.5-15.4)
--- NOTE | 2018-04-13 03:08 | Event Note ---
Date of Encounter: 04/13/18 Time of Encounter: 03:06 Called to see patient for new onset atrial fibrillation w RVR. EKG reviewed and confirmed findings. BP stable. Patient denies CP or SOB. Cardizem bolus and drip started. Will monitor closely and adjust drip as needed. BMP, magnesium, and troponin ordered. Anti-coagulation per day team.
[2018-04-13] MEDS ORDERED: 0.9 % Sodium Chloride 250 ML ONE (03:37)
[2018-04-13 03:59] LABS: BUN/Creatinine Ratio 42 (6-26); Blood Urea Nitrogen 22 mg/dL (8-23); Carbon Dioxide 24 mEq/L (23-29); Chloride 101 mEq/L (98-107); Glucose 134 mg/dL (70-105); Magnesium 1.8 mg/dL (1.6-2.6); Osmolality,Calculated 285 (280-300); Potassium 3.6 mEq/L (3.5-5.1); Sodium 135 mEq/L (136-145); eGFR For Non-African Americans > 60 (> 60)
[2018-04-13 04:00] LABS: Troponin I 0.03 ng/mL (< 0.04)
[2018-04-13] MEDS: *HR* Heparin 5,000 UNIT/ML VIAL SQ SCH (05:14)
[2018-04-13] MEDS ORDERED: Isovue-370 500 ML INFUS..BTL IV ONE (05:23)
[2018-04-13] MEDS ORDERED: Potassium Chloride 40 MEQ, Lidocaine 1% 2 ML in D5% in Water 500 ML IVPB ONE (05:45)
[2018-04-13] MEDS: amLODIPine 5 MG TABLET PO SCH (07:56)
--- NOTE | 2018-04-13 10:14 | Internal Med Progress Note ---
<TerryGelacio - Last Filed: 04/13/18 15:26> Hospitalist Progress Note - Encounter Date of Encounter: 04/13/18 Time of Encounter: 10:12 - Subjective Interval History: Patient reports doing okay this morning. Pain at 5/10 severity. Patient has been participating with PT/OT regularly. Overnight patient had an episode of new afib with rvr in rate 130-150s and was started overnight on cardizem drip. Trop was negative. EKG was consistent with afib with rvr. Patient also had a complaint of abdominal pain, so a CT abd/pelvis was ordered. Denies chest pain , palpitaitons, or shortness of breath. Denies fevers, chills, sweats, nausea, vomiting, changes in bowels or bladder, weakness, or rash. - Exam Vitals: Temp Pulse Resp BP Pulse Ox 98.2 F 81 17 118/72 94 04/13/18 07:22 04/13/18 07:22 04/13/18 07:22 04/13/18 07:22 04/13/18 07:22 Exam: General: awake, alert, oriented x 3, no acute distress HEENT: Pupils equal round, moist mucus membranes CV: regular rate and rhythm, grade 2/6 systolic murmur. Lungs: CTAB, normal resp effort. Abdomen: soft, nontender, normal bowel sounds MSK: L hip tenderness with palpation and with rom, but improving, all other extremities normal, no edema Neuro: Strength 5/5 bilaterally, minimally weaker due to pain on left hip, normal sensation Skin: normal color, left hip dressing clean, dry, intact. - Assessment and Plan (1) Paroxysmal atrial fibrillation with RVR Current Visit: Yes Status: Acute Assessment and Plan: New onset afib with rvr, asymptomatic Overnight hr went to 130-150, confirmed on EKG afib with rvr. Heart rate controlled this morning on diltiazem drip. JESSICA-VASC2 = 5 for age, female, htn, and CHF with mild diastolic dysfunction noted on Echo during this hospitalization. Trop negative. -Discontinue Cardizem drip, start Cardizem CD 120mg. Discontinue norvasc. -Discuss anticoagulation options with patient and family, currently only on heparin dvt ppx, no aspirin. -Start Eliquis 5mg bid. -Cardiology consulted, signed off after recommendations. - (2) Fracture, intertrochanteric, left femur Current Visit: Yes Status: Acute Assessment and Plan: Displaced left femoral neck fracture on arrival POD 2 s/p Left hemiarthroplasty of left hip. (04/11/18) Pain controlled, currently 5/10 on current rgiment. -Continue with pain control prn -post op care per Ortho -Continue PT/OT, social work. (3) Moderate aortic stenosis Current Visit: Yes Status: Acute Assessment and Plan: Echo completed 04/10/18 due to systolic heart murmur: EF 65%, mild concentric LVH, basal sigmoid septum, mild LV diastolic dysfunction , normal RV, trileaflet aortic valve, moderately calcified aortic valve leaflets , moderate aortic stenosis with mean gradient 24mmHg and 12mmHg. -Avoid nitrates. (4) HLD (hyperlipidemia) Current Visit: Yes Status: Chronic Assessment and Plan: Continue with home med for chronic disease management. (5) Hypertension Current Visit: Yes Status: Chronic Assessment and Plan: Controlled, continue with norvasc home med (6) Abdominal pain Current Visit: Yes Status: Acute Assessment and Plan: Resolved currently. Abd exam unremarkable. Developed significant abdominal pain yesterday evening. CT abd/pelvis ordered and completed. Revealed no acute findings. Nodular foci adjacent or within gallbladder wall , colonic diverticulosis without diverticulitis, nonobstructing right renal stones. (7) DVT prophylaxis Current Visit: Yes Status: Acute Assessment and Plan: Continue with heparin sq - Time Spent with Patient Total time spent is greater than 50% in coordination of care (as documented) at patient's floor/unit and/or counseling patient: Internal Medicine: Result - Labs CBC & Chem 7: 04/13/18 00:59 04/13/18 13:01 Labs: Short CBC 04/13/18 Range/Units 00:59 WBC 12.6 H (4.3-11.1) K/mcL Hgb 11.3 L D (11.5-15.4) g/dL Hct 33.5 L (35.3-44.9) % Plt Count 283 (140-400) K/mcL Neutrophils # 8.8 (1.6-8.9) K/mcL BMP 04/13/18 03:21 Sodium 135 L Potassium 3.6 Chloride 101 Carbon Dioxide 24 BUN 22 Creatinine 0.53 L Glucose 134 H Calcium 9.0 Cardiac Enzymes 04/13/18 Range/Units 03:21 Troponin I 0.03 (< 0.04) ng/mL - ABG Interpretation ABG results: PT/INR, D-dimer PT 11.0 Seconds (9.4-12.1) 04/11/18 01:05 - Impressions Impressions Abdomen/Pelvis CT 04/13/18 07:50 IMPRESSION: No acute intra-abdominal or intrapelvic abnormalities to explain the patient's symptoms. Postoperative changes in the soft tissues about the left hip, similar to recent left hip x-rays 04/11/2018 and likely relating to the recent left hip arthroplasty. Nodular foci identified adjacent to or within the gallbladder wall with largest focus noted towards the fundus measuring up to 1 cm in size. These could reflect gallbladder wall polyps or possibly adherent sludge balls or stones. Ultrasound may be of use for further evaluation. Colonic diverticulosis without evidence for diverticulitis. Nonobstructing right renal stones. D/ / 04/13/2018 09:54:38 Jose Miguel Woods MD / [facility] Interpreting Provider: Jose Miguel Woods MD Consult Discharge Plan - Plan Referrals: Nitesh Martinez [Primary Care Provider] - <Andre Astudillo - Last Filed: 04/13/18 18:03> Hospitalist Progress Note - Encounter Date of Encounter: 04/13/18 - Exam Vitals: Temp Pulse Resp BP Pulse Ox 98.7 F 77 17 140/81 92 04/13/18 16:16 04/13/18 16:16 04/13/18 16:16 04/13/18 16:16 04/13/18 16:16 - Assessment and Plan (1) Fracture, intertrochanteric, left femur Current Visit: Yes Status: Acute (2) Murmur Current Visit: Yes Status: Acute (3) Hypertension Current Visit: Yes Status: Chronic (4) DVT prophylaxis Current Visit: Yes Status: Acute (5) HLD (hyperlipidemia) Current Visit: Yes Status: Chronic (6) Leukocytosis Current Visit: Yes Status: Acute (7) Hypokalemia Current Visit: Yes Status: Resolved - Time Spent with Patient Total time spent is greater than 50% in coordination of care (as documented) at patient's floor/unit and/or counseling patient: Internal Medicine: Result - Labs CBC & Chem 7: 04/13/18 00:59 04/13/18 13:01 Labs: Short CBC 04/13/18 Range/Units 00:59 WBC 12.6 H (4.3-11.1) K/mcL Hgb 11.3 L D (11.5-15.4) g/dL Hct 33.5 L (35.3-44.9) % Plt Count 283 (140-400) K/mcL Neutrophils # 8.8 (1.6-8.9) K/mcL BMP 04/13/18 04/13/18 03:21 13:01 Sodium 135 L 133 L Potassium 3.6 4.3 Chloride 101 101 Carbon Dioxide 24 24 BUN 22 19 Creatinine 0.53 L 0.62 Glucose 134 H 178 H Calcium 9.0 8.7 Cardiac Enzymes 04/13/18 Range/Units 03:21 Troponin I 0.03 (< 0.04) ng/mL - ABG Interpretation ABG results: PT/INR, D-dimer PT 11.0 Seconds (9.4-12.1) 04/11/18 01:05 - Impressions Impressions Abdomen/Pelvis CT 04/13/18 07:50 IMPRESSION: No acute intra-abdominal or intrapelvic abnormalities to explain the patient's symptoms. Postoperative changes in the soft tissues about the left hip, similar to recent left hip x-rays 04/11/2018 and likely relating to the recent left hip arthroplasty. Nodular foci identified adjacent to or within the gallbladder wall with largest focus noted towards the fundus measuring up to 1 cm in size. These could reflect gallbladder wall polyps or possibly adherent sludge balls or stones. Ultrasound may be of use for further evaluation. Colonic diverticulosis without evidence for diverticulitis. Nonobstructing right renal stones. D/ / 04/13/2018 09:54:38 Jose Miguel Woods MD / [facility] Interpreting Provider: Jose Miguel Woods MD - Attending Attestation I have seen and examined this pt independently. I have discussed with resident physician Dr. Stewart regarding the management plan. Agree with the documentation. <Gelacio Stewart - Last Filed: 04/13/18 15:26> (2) Fracture, intertrochanteric, left femur Qualifiers: Encounter type: initial encounter Fracture type: closed Fracture alignment: displaced Qualified Code(s): S72.142A - Displaced intertrochanteric fracture of left femur, initial encounter for closed fracture (5) Hypertension Qualifiers: Hypertension type: essential hypertension Qualified Code(s): I10 - Essential (primary) hypertension (6) Abdominal pain Qualifiers: Abdominal location: unspecified location Qualified Code(s): R10.9 - Unspecified abdominal pain <Andre Astudillo - Last Filed: 04/13/18 18:03> (1) Fracture, intertrochanteric, left femur Qualifiers: Encounter type: initial encounter Fracture type: closed Fracture alignment: displaced Qualified Code(s): S72.142A - Displaced intertrochanteric fracture of left femur, initial encounter for closed fracture (3) Hypertension Qualifiers: Hypertension type: essential hypertension Qualified Code(s): I10 - Essential (primary) hypertension
[2018-04-13 13:43] LABS: BUN/Creatinine Ratio 31 (6-26); Blood Urea Nitrogen 19 mg/dL (8-23); Calcium 8.7 mg/dL (8.6-10.3); Carbon Dioxide 24 mEq/L (23-29); Chloride 101 mEq/L (98-107); Glucose 178 mg/dL (70-105); Osmolality,Calculated 283 (280-300); Potassium 4.3 mEq/L (3.5-5.1); Sodium 133 mEq/L (136-145); eGFR For Non-African Americans > 60 (> 60)
--- NOTE | 2018-04-13 14:51 | Cardiology Consult Note ---
Date of Encounter: 04/13/18 Time of Encounter: 14:30 Assessment and Plan (1) Fracture, intertrochanteric, left femur Current Visit: Yes Status: Acute Per Cardiology: Recent mechanical fall status post surgery as week for left hip. Management per primary service. Qualifiers: Encounter type: initial encounter Fracture type: closed Fracture alignment: displaced Qualified Code(s): S72.142A - Displaced intertrochanteric fracture of left femur, initial encounter for closed fracture (2) Paroxysmal atrial fibrillation with RVR Current Visit: Yes Status: Acute Per Cardiology: Apparent new onset atrial fibrillation. Currently on Cardizem drip 5 mg per hour and sinus rhythm in the 70s. Systolic blood pressures recently in the 110s. Will discontinue Norvasc and give Cardizem CD 120 as by mouth daily and discontinue Cardizem drip. Echo showed preserved EF=65%. Magnesium stable. Will check TSH. Regarding long-term anticoagulation, [id number] = 4-5. On SQ Hep. Had one fall recently appears to be mechanical in nature. We will perform schultz check for DOAC (Eliquis 5mg PO BID). (3) Moderate aortic stenosis Current Visit: Yes Status: Acute Per Cardiology: Echo: Moderate aortic stenosis with peak gradients of 24mmHg and valve area of 1.4cm2. Discussion w patient/family: The assessment and plan as outlined above was discussed with the patient who expressed understanding and agreement. All questions were answered. Thank you for involving us in the care of your patient. Please call with any questions. History of Present Illness Consult date: 04/13/18 Requesting physician: Gelacio Stewart Consult reason: Afib Chief complaint: Left Hip pain History of present illness: Ms. Avelar is a 88 year old female with a relevant past medical history of hypertension and hyperlipidemia. Past history of nicotine use remotely. Cardiology consult for A. fib with RVR. Patient denies any history of cardiovascular disease or known history of A. fib. Patient asymptomatic and unaware of a ablation that occurred today. She denies any chest pain, shortness of breath, palpitations. Denies any history of active bleeding or blood loss. Reports had a fall last week with her dog leash the dog "pulled her down". Has subsequent left hip fracture status post surgery last week. She denies any dizziness, palpitations. Denies any history of CVA, CAD, ICD, or pacemaker. Her normal state of health up until fall recently. Past Med Surg Social Fam HX - Past Medical History Attestation: Yes The following information was validated with the patient. Source: patient, old records reviewed Medical history: hyperlipidemia, hypertension Psychiatric history: no psych history - Past Surgical History Surgical History: appendectomy, hysterectomy Additional surgical history: lasik eye surgery 2009 - Social History Smoking Status: Never smoker Smokeless Tobacco Status: No Alcohol use: none Drug use: none - Family History Father History Unknown: Yes Living Status: Hx Family Cardiac Disorders: Yes ( of a stroke) Medications and Allergies Atorvastatin [Lipitor] 10 mg PO DAILY 04/10/18 [History] Ibuprofen [Ibu] 600 mg PO Q6HR PRN 04/10/18 [History] amLODIPine [Norvasc] 5 mg PO DAILY 04/10/18 [History] traZODone [TraZODone] 0.5 tab PO HS 04/10/18 [History] 3 Allergy/AdvReac Type Severity Reaction Status Date / Time Sulfa (Sulfonamide Allergy Unknown Rash Verified 04/10/18 00:17 Antibiotics) All Systems Review: The remainder of the systems were reviewed and are negative - Constitutional Constitutional: other (fall) - Cardiovascular Cardiovascular: as per HPI - Musculoskeletal Musculoskeletal: abnormal gait, other (left hip pain) Physical Examination Vital Signs, Last 4 Hours Temp Pulse Resp BP Pulse Ox 04/13/18 13:16 82 04/13/18 12:15 98.3 F 87 16 114/58 91 04/13/18 11:21 114/58 04/13/18 11:16 98.3 F 75 18 89/57 92 General: Conversant, No Apparent Distress HEENT: Atraumatic, Normocephaly, Mucus Membranes Moist Neck: No JVD, Normal carotid pulses Cardiac: Reg Rate and Rhythm, Normal S1 and S2, Other (Grade II murmur noted) Lungs: Normal Breath Sounds, No Wheeze, Rales, Rhonchi Neuro: Alert and responsive, No focal deficits noted Abdomen: Soft, Non-Tender Skin: No rashes noted on visualized skin Musculoskeletal: No Chest Wall Tenderness Extremities: No Clubbing, No Cyanosis, No Edema, Normal Pulses Results 04/13/18 00:59 04/13/18 13:01 Lab Results Laboratory Tests 04/10/18 04/11/18 04/13/18 03:42 01:05 00:59 Hgb 11.3 L D Hct 33.5 L INR 1.0 Creatinine Est GFR (Non-Af Amer) Magnesium AST 16 ALT 10 Troponin I 04/13/18 03:21 Hgb Hct INR Creatinine 0.53 L Est GFR (Non-Af Amer) > 60 Magnesium 1.8 AST ALT Troponin I 0.03 ITS Impressions Echocardiogram 04/10/18 02:30 Impressions: LVEF 65% Mild concentric left ventricular hypertrophy. Basal sigmoid septum. Mild left ventricular diastolic dysfunction. Normal right ventricular structure and function. Trileaflet aortic valve. Moderately calcified aortic valve leaflets. Moderate aortic stenosis with peak and mean gradients of 24mmHg 12mmHg mmHg, respectively. Unable to estimate RVSP due to lack of TR jet. Left Ventricular Wall Motion: Rest Echo Findings All wall segments showed normal motion. Findings: Study Quality * Technically adequate exam. ECG Findings * Normal sinus rhythm. Left Ventricle * LVEF 65% * Mild concentric left ventricular hypertrophy. * Basal sigmoid septum. * Mild left ventricular diastolic dysfunction. Right Ventricle * Normal right ventricular structure and function. Left Atrium * Normal left atrial size. Right Atrium * Normal right atrial size. Interatrial Septum * No evidence of PFO by color Doppler. Aortic Valve * Trileaflet aortic valve. * Moderately calcified aortic valve leaflets. * Moderate aortic stenosis. * Peak and mean gradients are 24mmHg 12mmHg mmHg, respectively. Mitral Valve * Normal mitral valve structure and function. * No mitral regurgitation. * No mitral stenosis. Tricuspid Valve * Normal tricuspid valve structure and function. * No tricuspid regurgitation. * No tricuspid stenosis. * Unable to estimate RVSP due to lack of TR jet. Pulmonic Valve * Normal pulmonic valve structure and function. * No pulmonic regurgitation. Aorta * Normally sized aortic root. Pericardium * There is a trivial pericardial effusion present. IVC * Normal IVC dimensions and inspiratory collapse. Pulmonary Artery * Normal visualized portions of the main pulmonary artery. Hip X-Ray 04/11/18 15:56 IMPRESSION: Unremarkable left hip radiographs status post bipolar left hip arthroplasty. D/ / Archie Grajeda / Archie Grajeda Interpreting Provider: Archie Grajeda Abdomen/Pelvis CT 04/13/18 07:50 IMPRESSION: No acute intra-abdominal or intrapelvic abnormalities to explain the patient's symptoms. Postoperative changes in the soft tissues about the left hip, similar to recent left hip x-rays 04/11/2018 and likely relating to the recent left hip arthroplasty. Nodular foci identified adjacent to or within the gallbladder wall with largest focus noted towards the fundus measuring up to 1 cm in size. These could reflect gallbladder wall polyps or possibly adherent sludge balls or stones. Ultrasound may be of use for further evaluation. Colonic diverticulosis without evidence for diverticulitis. Nonobstructing right renal stones. D/ / 04/13/2018 09:54:38 Jose Miguel Woods MD / lilo Interpreting Provider: Jose Miguel Woods MD Active Medications Acetaminophen (Tylenol) 650 mg PO Q6HR PRN PRN Reason: Mild Pain/Fever Stop: 10/10/18 02:31 Hydrocodone Bitart/Acetaminophen ([place] 5-325 Mg) 1 tab PO Q6HR PRN PRN Reason: Moderate Pain Stop: 10/10/18 02:31 Last Admin: 04/12/18 15:24 Dose: 1 tab Atorvastatin Calcium (Lipitor) 10 mg PO HS JUAN Stop: 10/12/18 21:01 Last Admin: 04/12/18 21:25 Dose: 10 mg Diltiazem HCl (Cardizem Cd) 120 mg PO DAILY JUAN Stop: 10/13/18 15:01 Fentanyl Citrate (Fentanyl (Pf)) 25 mcg IVP Q3H PRN PRN Reason: Severe Pain Stop: 10/10/18 02:31 Last Admin: 04/12/18 21:25 Dose: 25 mcg Heparin Sodium (Porcine) (Heparin) 5,000 unit SQ Q12HCO JUAN Stop: 10/10/18 06:01 Last Admin: 04/13/18 05:14 Dose: 5,000 unit Menthol (Cough Drops) 9.1 mg PO Q2H PRN PRN Reason: Cough Stop: 10/11/18 23:29 Last Admin: 04/11/18 23:36 Dose: 9.1 mg Naloxone HCl (Narcan) 0.4 mg IVP Q2MIN PRN PRN Reason: SEE COMMENTS Stop: 10/10/18 02:31 - Imaging and Cardiology Echo: report reviewed - EKG Interpretation EKG results cardiology: personally reviewed (Richi. fib with RVR in the 120s), other (Currently sinus rhythm the 70s on telemetry) Consult Discharge Plan - Plan Referrals: Nitesh Martinez [Primary Care Provider] -
--- NOTE | 2018-04-13 15:14 | Event Note ---
Date of Encounter: 04/13/18 Time of Encounter: 15:15 - Cardiology Event Note Eliquis schultz check $28/month, will start, dc SQ Hep. Discussed with Dr. Reed , will s/o, reconsult PRN, f/u arranged.
[2018-04-13] MEDS: Diltiazem CD (24hr) 120 MG CAPSULE PO SCH (15:47)
[2018-04-13 16:02] LABS: Thyroid Stimulating Hormone 6.133 mcIU/mL (0.340-5.600)
--- NOTE | 2018-04-13 19:33 | Orthopedics Progress Note ---
Date of Encounter: 04/13/18 Time of Encounter: 19:30 Subjective Principal diagnosis: Left hip fracture Interval history: 04/12/2018. Patient is postop day #1 hemiarthroplasty of the left hip secondary to a displaced femoral neck fracture. Patient has been out of bed to chair. Limited ambulation thus far. Complaining of anticipated pain. Vital signs are stable. Patient is afebrile. Incision is clean and dry. Neurovascular exam is intact. Hemoglobin nearly 13. Impression: POD #1 hemiarthroplasty left hip Recommendation: Begin ambulation with weightbearing as tolerated. Need to maintain total hip arthroplasty precautions. Recheck labs in a.m. sales agent business services for discharge planning, suspect patient will need short-term rehabilitation stay prior to going home. 04/13/2018. Patient is POD #2 hemiarthroplasty left hip. Noted to have acute onset of atrial fibrillation with rapid ventricular response, responding to medical treatment. Current vital signs are stable. Patient is afebrile. Hip incision is clean and dry. Hemoglobin 11.3 with a platelet count of to 83. Impression: POD #2 hemiarthroplasty left hip for acute displaced femoral neck fracture Recommendations: As noted previously, patient can be weightbearing as tolerated but maintaining hip arthroplasty precautions. Hemoglobin appears relatively stable. Patient is being started on Eliquis, we will need to keep an eye on her Hemoglobin until she is discharged. Patient will need follow-up with me in about 3 weeks' time after discharge or sooner should any problems arise. Objective Vital signs: Vital Signs Temp Pulse Resp BP Pulse Ox 04/13/18 16:16 98.7 F 77 17 140/81 92 04/13/18 13:16 82 04/13/18 12:15 98.3 F 87 16 114/58 91 04/13/18 11:21 114/58 04/13/18 11:16 98.3 F 75 18 89/57 92 04/13/18 07:56 91 04/13/18 07:22 98.2 F 81 17 118/72 94 04/13/18 06:42 135 107/67 04/13/18 06:01 124 149/84 04/13/18 05:18 156 119/78 04/13/18 04:58 150 110/65 04/13/18 04:35 130 108/74 04/13/18 03:32 133 100/70 04/13/18 02:27 98 F 137 16 147/74 95 04/12/18 23:25 98.4 F 91 22 160/85 95 Intake and Output 04/13/18 04/13/18 04/13/18 07:59 15:59 23:59 Intake Total 24.2 / 24.2 923.5 / 923.5 Output Total 75 / 75 300 / 300 Balance -50.8 / -50.8 623.5 / 623.5 Intake: IV Fluids 24.2 / 24.2 623.5 / 623.5 Cardizem 50 MG In 0.9 % Sodium 24.2 / 24.2 101.5 / 101.5 Chloride 40 ML @ 5 MG/HR 5 mls/ hr IVC .Q10H JUAN Rx#:[id number] KCl 40 MEQ Xylocaine 2 ML In 522 / 522 Dextrose 5% 500 ML @ 130.5 mls/ hr IVPB ONCE ONE Rx#:[id number] Oral 300 / 300 Output: Urine 75 / 75 300 / 300 Other: Meal Breakfast Percent of Meal Consumed 100% # Voids 2 Weight 59.4 kg Patient Weight 04/13/18 23:59 Weight 59.4 kg - Labs CBC & BMP: 04/13/18 00:59 04/13/18 13:01 Labs: Abnormal lab results WBC 12.6 K/mcL (4.3-11.1) H 04/13/18 00:59 Hgb 11.3 g/dL (11.5-15.4) L D 04/13/18 00:59 Hct 33.5 % (35.3-44.9) L 04/13/18 00:59 Sodium 133 mEq/L (136-145) L 04/13/18 13:01 BUN/Creatinine Ratio 31 (6-26) H 04/13/18 13:01 Glucose 178 mg/dL (70-105) H 04/13/18 13:01 TSH 6.133 mcIU/mL (0.340-5.600) H 04/13/18 13:01 Consult Discharge Plan - Plan Referrals: Nitesh Martinez [Primary Care Provider] -
[2018-04-13] MEDS: Apixaban 5 MG TABLET PO SCH (19:43)
[2018-04-13] MEDS: *HR* FentaNYL (PF) 100 MCG/2 ML VIAL IVP PRN (19:43)
[2018-04-14 02:19] LABS: Basophils # 0.1 K/mcL (0.0-0.2); Basophils % 0.7 %; Eosinophils # 0.5 K/mcL (0.0-0.6); Eosinophils % 3.4 %; Hematocrit 32.5 % (35.3-44.9); Hemoglobin 11.2 g/dL (11.5-15.4); Immature Granulocytes % 0.5 % (0-4); Lymphocytes # 2.6 K/mcL (0.6-4.6); Lymphocytes % 19.8 %; Mean Corpuscular HGB Conc 34.5 g/dL (31.6-35.5); Mean Corpuscular Hemoglobin 30.5 pg (28.0-33.3); Mean Corpuscular Volume 88.6 fL (83.0-100.0); Mean Platelet Volume 10.5 fL (9.4-12.4); Monocytes # 1.2 K/mcL (0.0-1.3); Monocytes % 8.9 %; Neutrophils # 8.7 K/mcL (1.6-8.9); Platelet Count 309 K/mcL (140-400); Red Blood Count 3.67 M/mcL (3.82-4.97); Red Cell Distribution Width 13.5 % (11.5-14.5); Segmented Neutrophils % 66.7 %
[2018-04-14 02:41] LABS: BUN/Creatinine Ratio 29 (6-26); Blood Urea Nitrogen 16 mg/dL (8-23); Calcium 8.5 mg/dL (8.6-10.3); Carbon Dioxide 25 mEq/L (23-29); Chloride 102 mEq/L (98-107); Glucose 123 mg/dL (70-105); Osmolality,Calculated 283 (280-300); Potassium 4.1 mEq/L (3.5-5.1); Sodium 135 mEq/L (136-145); eGFR For Non-African Americans > 60 (> 60)
[2018-04-14] MEDS: Diltiazem CD (24hr) 120 MG CAPSULE PO SCH (08:09)
[2018-04-14] MEDS: Apixaban 5 MG TABLET PO SCH ×2 (08:09→19:42)
--- NOTE | 2018-04-14 11:06 | Discharge Summary ---
- NOTES TO OUTPATIENT PROVIDER Notes to Outpatient Provider: 1. Pt developped A Fib RVR in hospital, cardio consult saw pt, start new meds cardizem and eliquis. Recommend repeat H/H in one week as pt newly stasrted anticoagulations. Date of Encounter: 04/14/18 Time of Encounter: 10:00 - Discharge Diagnosis (1) Fracture, intertrochanteric, left femur Priority: Primary Status: Acute Qualifiers: Encounter type: initial encounter Fracture type: closed Fracture alignment: displaced Qualified Code(s): S72.142A - Displaced intertrochanteric fracture of left femur, initial encounter for closed fracture (2) Murmur Priority: Secondary Status: Acute (3) Hypertension Priority: Secondary Status: Chronic Qualifiers: Hypertension type: essential hypertension Qualified Code(s): I10 - Essential (primary) hypertension (4) DVT prophylaxis Priority: Secondary Status: Acute (5) HLD (hyperlipidemia) Priority: Secondary Status: Chronic Qualifiers: Qualified Code(s): E78.5 - Hyperlipidemia, unspecified (6) Leukocytosis Priority: Secondary Status: Acute Qualifiers: Leukocytosis type: leukemoid reaction Qualified Code(s): D72.823 - Leukemoid reaction (7) Hypokalemia Priority: Secondary Status: Resolved Hospital course: Ms. Avelar is a 88 year old female admitted for left femoral neck fracture after fall. Orthopedic surgeon consult saw patient. Patient had , cardiology consult called before surgery for risk evaluation. Patient had surgery uneventfully. Patient developed new A. fib with RVR later on POD# 2, patient was treated with Cardizem drip, operating room manager saw patient and recommend start Eliquis for stroke prophylaxis. Cardizem drip switched to by mouth Cardizem and patient heart rate is well controlled and keep in sinus rhythm today. Patient will discharge to rehabilitation center for continued rehabilitation for hip fracture. I saw and examined the patient today. Still complaining pain of left hip, need pain medications. Vitals are stable. Heart rate at 80s, sinus rhythm. Will consider discharge patient to rehabilitation center for continuous rehabilitation. Follow-up with orthopedic and cardiology as outpatient. - Time Spent with Patient Total time spent providing and/or coordinating discharge services: 25 minutes Less than 30 minutes - Discharge Medications Prescriptions: HYDROcodone/Acet 5/325 mg [[place] 5-325 mg] 1 tab PO Q6HR PRN 3 Days #12 tablet PRN Reason: Moderate Pain OxyCODONE/APAP 5/325 [Percocet 5/325 MG] 1 each PO Q6HR PRN 3 Days #12 tablet PRN Reason: Pain Apixaban [Eliquis] 5 mg PO BID 30 Days #60 tablet Diltiazem CD (24hr) [Cardizem CD] 120 mg PO DAILY 30 Days #30 cap.er.24h Home Medications: Atorvastatin [Lipitor] 10 mg PO DAILY 04/10/18 [History] Ibuprofen [Ibu] 600 mg PO Q6HR PRN 04/10/18 [History] traZODone [TraZODone] 0.5 tab PO HS 04/10/18 [History] Apixaban [Eliquis] 5 mg PO BID 30 Days #60 tablet 04/14/18 [Rx] Diltiazem CD (24hr) [Cardizem CD] 120 mg PO DAILY 30 Days #30 cap.er.24h [Rx] HYDROcodone/Acet 5/325 mg [[place] 5-325 mg] 1 tab PO Q6HR PRN 3 Days #12 tablet 04/14/18 [Rx] OxyCODONE/APAP 5/325 [Percocet 5/325 MG] 1 each PO Q6HR PRN 3 Days #12 tablet [Rx] Allergies/Adverse Reactions: 3 Allergy/AdvReac Type Severity Reaction Status Date / Time Sulfa (Sulfonamide Allergy Unknown Rash Verified 04/10/18 00:17 Antibiotics) Date of admission: 04/10/18 17:38 Primary care physician: Nitesh Martinez Consults: 04/10/18 02:32 Consult to Physician [CONS] Routine Consulting Provider: Braden Wilder Reason for Consult: hip fracture Call Completed: Yes 04/10/18 15:45 Consult to Cardiology [CONS] Routine Comment: Consulting Provider: Cardiology Ana Rosa Reason for Consult: pre op clearnace fo rhip fracture, as new murmur and echo with mod Call Completed: Yes 04/11/18 16:22 Consult to Occupational Therapy [CONS] Routine Comment: Evaluate, develop and implement POC Reason for Consult: ADL Does patient have active BEDREST order?: No Is patient medically & hemodynamically stable?: Yes Consult to Physical Therapy [CONS] Routine Comment: Evaluate, develop and implement POC Reason for Consult: Hip Fx Does patient have active BEDREST order?: No Is patient medically & hemodynamically stable?: Yes Consult to Registered Nurse Obstetrics [CONS] Routine Reason for SW Consult: dc 04/13/18 13:06 Consult to Cardiology [CONS] Routine Comment: Consulting Provider: Cardiology Ana Rosa Reason for Consult: afib rvr, paged x2, will attempt again this afternoon. Call Completed: No Discharging clinician: Andre Astudillo Anticipated date of discharge: 04/14/18 - Constitutional Vitals: Temp Pulse Resp BP Pulse Ox 98.3 F 84 18 144/78 95 04/14/18 06:37 04/14/18 06:37 04/14/18 06:37 04/14/18 06:37 04/14/18 06:37 General appearance: Present: cooperative, A&O X 3, pleasant, no acute distress, answers questions appropriately Exam: in NAD - Head Head exam: Present: atraumatic, normocephalic - Eye Eye exam: Present: PERRL, conjuntiva pink, sclera anicteric Pupils: Present: PERRL - Neck Neck exam general surgery: Present: supple, trachea midline. Absent: lymphadenopathy - Respiratory Respiratory exam: Present: CTAB. Absent: accessory muscle use, rales, rhonchi, wheezes - Cardiovascular Cardiovascular exam: Present: RRR, +S1, +S2. Absent: diastolic murmur, gallop, rubs, systolic murmur - GI/Abdominal GI/Abdominal exam: Present: normal bowel sounds, soft, no peritoneal signs. Absent: distended, tenderness - Extremities Exam Extremities exam: Present: warm, radial pulses palpable and symmetrical. Absent : calf tenderness, cyanotic, pedal edema Additional comments: Left leg pain on movement. - Neurological Exam Neurological exam: Present: CN II-XII intact, oriented X3, no focal deficits. Absent: pronater drift, facial droop, speech deficit - Skin Skin exam: Present: dry, intact - Patient Status Disposition: Transfer SNF Overall status at discharge: patient is not back to baseline - Discharge Instructions Follow Up With: Nitesh Martinez [Primary Care Provider] - - Diet and Activity Activity: as per physical therapy Diet: low fat, low cholesterol, low salt diet, other (Ensure supplement)
--- NOTE | 2018-04-14 11:35 | Physician Discharge Referral ---
ExtendedCare Referral Info Transfer To: REhab Provider in Charge after Transfer: Other (Rehab provider) - Diagnosis (1) Fracture, intertrochanteric, left femur Status: Acute (2) Murmur Status: Acute (3) Hypertension Status: Chronic (4) DVT prophylaxis Status: Acute (5) HLD (hyperlipidemia) Status: Chronic (6) Leukocytosis Status: Acute (7) Hypokalemia Status: Resolved - Transfer Medications Prescriptions: HYDROcodone/Acet 5/325 mg [[place] 5-325 mg] 1 tab PO Q6HR PRN 3 Days #12 tablet PRN Reason: Moderate Pain OxyCODONE/APAP 5/325 [Percocet 5/325 MG] 1 each PO Q6HR PRN 3 Days #12 tablet PRN Reason: Pain Apixaban [Eliquis] 5 mg PO BID 30 Days #60 tablet Diltiazem CD (24hr) [Cardizem CD] 120 mg PO DAILY 30 Days #30 cap.er.24h Home Medications: Atorvastatin [Lipitor] 10 mg PO DAILY 04/10/18 [History] Ibuprofen [Ibu] 600 mg PO Q6HR PRN 04/10/18 [History] traZODone [TraZODone] 0.5 tab PO HS 04/10/18 [History] Apixaban [Eliquis] 5 mg PO BID 30 Days #60 tablet 04/14/18 [Rx] Diltiazem CD (24hr) [Cardizem CD] 120 mg PO DAILY 30 Days #30 cap.er.24h [Rx] HYDROcodone/Acet 5/325 mg [[place] 5-325 mg] 1 tab PO Q6HR PRN 3 Days #12 tablet 04/14/18 [Rx] OxyCODONE/APAP 5/325 [Percocet 5/325 MG] 1 each PO Q6HR PRN 3 Days #12 tablet [Rx] Allergies/Adverse Reactions: 3 Allergy/AdvReac Type Severity Reaction Status Date / Time Sulfa (Sulfonamide Allergy Unknown Rash Verified 04/10/18 00:17 Antibiotics) - Respiratory Orders Smoking Cessation: Smoking cessation has been advised. For more information, call the [place] Tobacco Quit Line at 5-571-BZOL-NOW. - Advance Directives Code Status: Full Code - Rehabiliation Orders Rehab Orders: Evaluation for Physical Therapy, Evaluation for Occupational Therapy - Diet Orders Cardiac (With ensure supplement) CERTIFICATION: I certify that the transfer of the above named patient to an Extended Care Facility is necessary for the continuing treatment of the diagnosis listed. The above information is true and accurate reflection of patient's current condition. Confidential - Redisclosure prohibited without a patient's written consent.
[2018-04-14] MEDS: *HR* HYDROcodone/Acet 5/325 mg TABLET PO PRN (12:34)
[2018-04-14] MEDS: *HR* OxyCODONE/APAP 5/325 TABLET PO PRN (19:42)
--- NOTE | 2018-04-15 07:43 | Internal Med Progress Note ---
<Gelacio Stewart Real - Last Filed: 04/15/18 08:55> Hospitalist Progress Note - Encounter Date of Encounter: 04/15/18 Time of Encounter: 07:45 - Subjective Interval History: Patient reports doing okay this morning. L hip pain at 5-6/10 severity. Uncetain when last bowel movement, according to our I/O has not had one since admission. Patient has been participating with PT/OT regularly. Heart rate controlled overnight. Denies fevers, chills, sweats, nausea, vomiting, chest pain, shortness of breath, cough, abdominal pain, changes in urination, weakness , or rash. - Exam Vitals: Temp Pulse Resp BP Pulse Ox 98.5 F 85 16 150/75 92 04/15/18 06:51 04/15/18 06:51 04/15/18 06:51 04/15/18 06:51 04/15/18 06:51 Exam: General: awake, alert, oriented x 3, no acute distress HEENT: Pupils equal round, moist mucus membranes CV: regular rate and rhythm, grade 3/6 systolic murmur. Lungs: CTAB, normal resp effort. Abdomen: soft, nontender, normal bowel sounds MSK: L hip tenderness with palpation and with rom, but improving, all other extremities normal, no edema Neuro: Strength 5/5 bilaterally, minimally weaker due to pain on left hip, normal sensation Skin: normal color, left hip dressing clean, dry, intact. - Assessment and Plan (1) Paroxysmal atrial fibrillation with RVR Current Visit: Yes Status: Resolved Assessment and Plan: New onset afib with rvr during this visit, asymptomatic Heart rate controlled overnight. Auscultation RRR. Cardio evaluated. -Continue with Cardizem CD 120mg -Continue with Eliquis (2) Fracture, intertrochanteric, left femur Current Visit: Yes Status: Acute Assessment and Plan: Displaced left femoral neck fracture on arrival POD 4 s/p Left hemiarthroplasty of left hip. (04/11/18) Pain controlled, currently 5-6/10 on current regimen -Continue with pain control prn -post op care per Ortho -Miralax margarito qd for narcotic induced constipation. -Discharged, pending placement with ECF. (3) Moderate aortic stenosis Current Visit: Yes Status: Acute Assessment and Plan: Echo completed 04/10/18 due to systolic heart murmur: EF 65%, mild concentric LVH, basal sigmoid septum, mild LV diastolic dysfunction , normal RV, trileaflet aortic valve, moderately calcified aortic valve leaflets , moderate aortic stenosis with mean gradient 24mmHg and 12mmHg. -Avoid nitrates. (4) HLD (hyperlipidemia) Current Visit: Yes Status: Chronic Assessment and Plan: Known history of hld Continue home med for chronic disease management. (5) Hypertension Current Visit: Yes Status: Chronic Assessment and Plan: History of hypertension not on home meds. Bp overnight slightly elevated 145-151/71-75 -Continue monitoring -No therapy at this time. (6) Abdominal pain Current Visit: Yes Status: Resolved Assessment and Plan: Abd pain resolved, 1 episode night after surgery. CT abd/pelvis revealed no acute findings. Nodular foci adjacent or within gallbladder wall, colonic diverticulosis without diverticulitis, nonobstructing right renal stones. (7) Drug induced constipation Current Visit: Yes Status: Acute Assessment and Plan: On narcotic pain medications due to Left hip fracture and s/p L hip hemiarthroplasty. No bowel movement since admission. -Miralax qd ordered. (8) DVT prophylaxis Current Visit: Yes Status: Acute Assessment and Plan: On Eliquis - Time Spent with Patient Total time spent is greater than 50% in coordination of care (as documented) at patient's floor/unit and/or counseling patient: Internal Medicine: Result - Labs CBC & Chem 7: 04/15/18 07:46 04/14/18 01:42 - ABG Interpretation ABG results: PT/INR, D-dimer PT 11.0 Seconds (9.4-12.1) 04/11/18 01:05 Consult Discharge Plan - Plan Referrals: Nitesh Martinez [Primary Care Provider] - Prescriptions: HYDROcodone/Acet 5/325 mg [[place] 5-325 mg] 1 tab PO Q6HR PRN 3 Days #12 tablet PRN Reason: Moderate Pain OxyCODONE/APAP 5/325 [Percocet 5/325 MG] 1 each PO Q6HR PRN 3 Days #12 tablet PRN Reason: Pain Apixaban [Eliquis] 5 mg PO BID 30 Days #60 tablet Diltiazem CD (24hr) [Cardizem CD] 120 mg PO DAILY 30 Days #30 cap.er.24h <Andre Astudillo - Last Filed: 04/15/18 13:07> Hospitalist Progress Note - Encounter Date of Encounter: 04/15/18 - Exam Vitals: Temp Pulse Resp BP Pulse Ox 97.6 F 77 16 127/78 95 04/15/18 11:20 04/15/18 11:20 04/15/18 11:20 04/15/18 11:20 04/15/18 11:20 - Assessment and Plan (1) Fracture, intertrochanteric, left femur Current Visit: Yes Status: Acute (2) Murmur Current Visit: Yes Status: Acute (3) Hypertension Current Visit: Yes Status: Chronic (4) DVT prophylaxis Current Visit: Yes Status: Acute (5) HLD (hyperlipidemia) Current Visit: Yes Status: Chronic (6) Leukocytosis Current Visit: Yes Status: Acute (7) Hypokalemia Current Visit: Yes Status: Resolved - Time Spent with Patient Total time spent is greater than 50% in coordination of care (as documented) at patient's floor/unit and/or counseling patient: Internal Medicine: Result - Labs CBC & Chem 7: 04/15/18 07:46 04/14/18 01:42 Labs: Short CBC 04/15/18 Range/Units 07:46 Hgb 10.3 L (11.5-15.4) g/dL Hct 30.6 L (35.3-44.9) % - ABG Interpretation ABG results: PT/INR, D-dimer PT 11.0 Seconds (9.4-12.1) 04/11/18 01:05 - Attending Attestation I have seen and examined this pt independently. I have discussed with resident physician Dr Stewart regarding the management plan. Agree with the documentation. <FurcherylAshtynGelaciolittle Hunthi - Last Filed: 04/15/18 08:55> (2) Fracture, intertrochanteric, left femur Qualifiers: Encounter type: initial encounter Fracture type: closed Fracture alignment: displaced Qualified Code(s): S72.142A - Displaced intertrochanteric fracture of left femur, initial encounter for closed fracture (5) Hypertension Qualifiers: Hypertension type: essential hypertension Qualified Code(s): I10 - Essential (primary) hypertension (6) Abdominal pain Qualifiers: Abdominal location: unspecified location Qualified Code(s): R10.9 - Unspecified abdominal pain <AstudilloAndre - Last Filed: 04/15/18 13:07> (1) Fracture, intertrochanteric, left femur Qualifiers: Encounter type: initial encounter Fracture type: closed Fracture alignment: displaced Qualified Code(s): S72.142A - Displaced intertrochanteric fracture of left femur, initial encounter for closed fracture (3) Hypertension Qualifiers: Hypertension type: essential hypertension Qualified Code(s): I10 - Essential (primary) hypertension (6) Leukocytosis Qualifiers: Leukocytosis type: leukemoid reaction Qualified Code(s): D72.823 - Leukemoid reaction
[2018-04-15 07:59] LABS: Hematocrit 30.6 % (35.3-44.9); Hemoglobin 10.3 g/dL (11.5-15.4)
[2018-04-15] MEDS: Apixaban 5 MG TABLET PO SCH (09:08)
[2018-04-15] MEDS: Diltiazem CD (24hr) 120 MG CAPSULE PO SCH (09:08)
[2018-04-15] MEDS: *HR* OxyCODONE/APAP 5/325 TABLET PO PRN (09:58)
[2018-04-15 12:55] VITALS: BP 127/78
--- NOTE | 2018-04-18 08:28 | Electrocardiograph Report ---
[place] [id number] Test Date: 2018-04-13 Pat Name: Joaquina Avelar Department: 115 Room: [facility] Gender: F Pickle [employer] Operator: [id number] : 1930 Requested By: Royce Robles Order Number: [id number] Reading MD: Chandra Reed Measurements Intervals Wallace Rate: 130 P: VT: 0 QRS: 70 QRSD: 132 T: 38 QT: 321 QTc: 398 Interpretive Statements ATRIAL FIBRILLATION WITH RAPID VENTRICULAR RESPONSE RIGHT BUNDLE BRANCH BLOCK Electronically Signed On 04-18-2018 8:27:03 EDT by Chandra Reed
== END 2018-04-15 16:09 | DRG 470 ==
LOC: 3NENU → SUATTDRO 23:37
PROVIDERS: ADMIT Family Medicine; ATTEND Internal Medicine

== ENCOUNTER 2019-09-20 19:28 | Inpatient (IN) ==
[2019-09-20] MEDS ORDERED: Naloxone 0.4 MG/ML INJ IVP PRN (23:05)
[2019-09-21] MEDS: 0.9 % Sodium Chloride 1,000 ML IVC SCH ×2 (00:27→08:30)
[2019-09-21 05:33] LABS: Hematocrit 31.9 % (35.3-44.9); Hemoglobin 10.2 g/dL (11.5-15.4); Mean Corpuscular Hemoglobin 28.5 pg (28.0-33.3); Mean Corpuscular Volume 89.1 fL (83.0-100.0); Mean Platelet Volume 10.2 fL (9.4-12.4); Platelet Count 338 K/mcL (140-400); Red Blood Count 3.58 M/mcL (3.82-4.97); Red Cell Distribution Width 13.7 % (11.5-14.5); White Blood Count 14.2 K/mcL (4.3-11.1)
[2019-09-21 05:38] LABS: INR 1.2; Prothrombin Time 13.3 Seconds (9.4-12.1)
[2019-09-21 05:46] LABS: Alanine Aminotransferase 9 Units/L (7-52); Albumin/Globulin Ratio 1.1 (1.1-2.2); Alkaline Phosphatase 80 Units/L (34-104); Aspartate Amino Transferase 15 Units/L (13-39); BUN/Creatinine Ratio 26 (6-26); Bilirubin,Total 0.5 mg/dL (0.3-1.0); Blood Urea Nitrogen 18 mg/dL (8-23); Calcium 8.1 mg/dL (8.6-10.3); Carbon Dioxide 21 mEq/L (23-29); Chloride 110 mEq/L (98-107); Globulin 2.7 g/dL (2.4-3.5); Glucose 113 mg/dL (70-105); Magnesium 1.9 mg/dL (1.6-2.6); Osmolality,Calculated 293 (280-300); Potassium 3.2 mEq/L (3.5-5.1); Sodium 140 mEq/L (136-145); Total Protein 5.7 g/dL (6.4-8.9); eGFR For African Americans > 60 (> 60); eGFR For Non-African Americans > 60 (> 60)
[2019-09-21] MEDS: DilTIAZem CD (24hr) 120 MG CAP.ER.24H PO SCH ×2 (07:00→07:20)
[2019-09-21] MEDS: lisinopriL 20 MG TABLET PO SCH (08:34)
[2019-09-21] MEDS ORDERED: Magnesium Oxide 400 MG TABLET PO ONE (09:00)
[2019-09-21] MEDS ORDERED: cefTRIAXone 1,000 MG in Water for inj. (sterile) 10 ML IVP SCH (09:00)
[2019-09-21] MEDS ORDERED: Apixaban 5 MG TABLET PO SCH (09:00)
[2019-09-21] MEDS: Piperacillin/Tazobactam 3.375 GM in 0.9 % Sodium Chloride Mini Bag 100 ML IVPB SCH ×3 (10:55→23:26)
[2019-09-21 12:58] LABS: Bilirubin,Urine Negative (Negative); Blood,Urine Large (Negative); Clarity,Urine Cloudy (Clear); Color,Urine Yellow (Yellow); Glucose,Urine (UA) Normal (Normal); Ketones,Urine Negative (Negative); Leukocyte Esterase,Urine Moderate (Negative); Nitrite,Urine Negative (Negative); Protein,Urine 100 mg/dL (Neg-Trace); Urobilinogen,Urine Normal (Normal)
[2019-09-21 13:01] LABS: Squamous Epithelial Cell,Urine Many per lpf (None-Few); WBC,Urine 50-100 per hpf (0-3)
[2019-09-21 13:23] LABS: Bacteria,Urine Moderate per hpf (None-Few); Hyaline Casts,Urine None Seen per lpf (None-Few); RBC,Urine 50-100 per hpf (0-3); Yeast,Urine Moderate per hpf (None Seen)
[2019-09-21] MEDS: Acetaminophen 325 MG TABLET PO PRN (14:03)
[2019-09-22] MEDS: *HR* Metoprolol 5 MG/5 ML VIAL IVP PRN ×2 (02:13→09:59)
[2019-09-22 06:16] LABS: Basophils # 0.1 K/mcL (0.0-0.2); Basophils % 0.3 %; Eosinophils # 0.5 K/mcL (0.0-0.6); Eosinophils % 2.8 %; Hematocrit 31.8 % (35.3-44.9); Hemoglobin 10.1 g/dL (11.5-15.4); Immature Granulocytes % 0.4 % (0-4); Lymphocytes # 2.1 K/mcL (0.6-4.6); Lymphocytes % 11.6 %; Mean Corpuscular HGB Conc 31.8 g/dL (31.6-35.5); Mean Corpuscular Hemoglobin 27.9 pg (28.0-33.3); Mean Corpuscular Volume 87.8 fL (83.0-100.0); Mean Platelet Volume 10.7 fL (9.4-12.4); Monocytes % 5.8 %; Neutrophils # 14.2 K/mcL (1.6-8.9); Platelet Count 291 K/mcL (140-400); Red Blood Count 3.62 M/mcL (3.82-4.97); Red Cell Distribution Width 13.8 % (11.5-14.5); Segmented Neutrophils % 79.1 %
[2019-09-22 06:41] LABS: BUN/Creatinine Ratio 18 (6-26); Blood Urea Nitrogen 12 mg/dL (8-23); Calcium 7.9 mg/dL (8.6-10.3); Carbon Dioxide 19 mEq/L (23-29); Chloride 109 mEq/L (98-107); Glucose 114 mg/dL (70-105); Magnesium 1.6 mg/dL (1.6-2.6); Osmolality,Calculated 283 (280-300); Phosphorous 1.9 mg/dL (2.7-4.5); Potassium 3.5 mEq/L (3.5-5.1); Sodium 136 mEq/L (136-145); eGFR For African Americans > 60 (> 60); eGFR For Non-African Americans > 60 (> 60)
[2019-09-22] MEDS ORDERED: Potassium Phosphate 44 MEQ in 0.9 % Sodium Chloride 250 ML IVPB ONE (07:48)
[2019-09-22] MEDS: DilTIAZem CD (24hr) 120 MG CAP.ER.24H PO SCH (09:27)
[2019-09-22] MEDS: lisinopriL 20 MG TABLET PO SCH (09:27)
[2019-09-22] MEDS: Piperacillin/Tazobactam 3.375 GM in 0.9 % Sodium Chloride Mini Bag 100 ML IVPB SCH ×3 (09:33→23:24)
[2019-09-22] MEDS: Acetaminophen 325 MG TABLET PO PRN (09:37)
[2019-09-22] MEDS ORDERED: Ringers Solution, Lactated 500 ML IVC SCH (12:30)
[2019-09-22] MEDS ORDERED: 0.9 % Sodium Chloride 500 ML IVC ONE (13:14)
[2019-09-23] MEDS: Acetaminophen 325 MG TABLET PO PRN (01:35)
[2019-09-23 04:18] LABS: Basophils # 0.1 K/mcL (0.0-0.2); Basophils % 0.6 %; Eosinophils # 0.3 K/mcL (0.0-0.6); Eosinophils % 1.5 %; Hematocrit 29.5 % (35.3-44.9); Hemoglobin 9.6 g/dL (11.5-15.4); Immature Granulocytes % 0.6 % (0-4); Lymphocytes # 2.3 K/mcL (0.6-4.6); Lymphocytes % 13.6 %; Mean Corpuscular HGB Conc 32.5 g/dL (31.6-35.5); Mean Corpuscular Hemoglobin 28.7 pg (28.0-33.3); Mean Corpuscular Volume 88.3 fL (83.0-100.0); Mean Platelet Volume 10.4 fL (9.4-12.4); Monocytes # 1.3 K/mcL (0.0-1.3); Monocytes % 7.5 %; Platelet Count 325 K/mcL (140-400); Red Blood Count 3.34 M/mcL (3.82-4.97); Red Cell Distribution Width 13.9 % (11.5-14.5); Segmented Neutrophils % 76.2 %
[2019-09-23 04:36] LABS: BUN/Creatinine Ratio 20 (6-26); Blood Urea Nitrogen 13 mg/dL (8-23); Calcium 7.5 mg/dL (8.6-10.3); Carbon Dioxide 19 mEq/L (23-29); Chloride 112 mEq/L (98-107); Glucose 118 mg/dL (70-105); Magnesium 1.9 mg/dL (1.6-2.6); Osmolality,Calculated 283 (280-300); Phosphorous 2.9 mg/dL (2.7-4.5); Potassium 3.4 mEq/L (3.5-5.1); Sodium 136 mEq/L (136-145); eGFR For African Americans > 60 (> 60); eGFR For Non-African Americans > 60 (> 60)
[2019-09-23] MEDS: lisinopriL 20 MG TABLET PO SCH (07:59)
[2019-09-23] MEDS: DilTIAZem CD (24hr) 180 MG CAP.ER.24H PO SCH (08:00)
[2019-09-23] MEDS: Azithromycin 500 MG in 0.9 % Sodium Chloride 250 ML IVPB SCH (08:01)
[2019-09-23] MEDS: Piperacillin/Tazobactam 3.375 GM in 0.9 % Sodium Chloride Mini Bag 100 ML IVPB SCH ×3 (08:01→23:25)
[2019-09-23 09:19] LABS: Adenovirus Not Detected (Not Detect); Bordetella Pertussis Not Detected (Not Detect); Chlamydophila pneumoniae Not Detected (Not Detect); Coronavirus 229E Not Detected (Not Detect); Coronavirus HKU1 Not Detected (Not Detect); Coronavirus NL63 Not Detected (Not Detect); Coronavirus OC43 Not Detected (Not Detect); Human Metapneumovirus Not Detected (Not Detect); Human Rhinovirus/Enterovirus Not Detected (Not Detect); Influenza A Subtype 2009 H1 Not Detected (Not Detect); Influenza B Not Detected (Not Detect); Mycoplasma pneumoniae Not Detected (Not Detect); Parainfluenza Virus 1 Not Detected (Not Detect); Parainfluenza Virus 2 Not Detected (Not Detect); Parainfluenza Virus 3 Not Detected (Not Detect); Parainfluenza Virus 4 Not Detected (Not Detect); Respiratory Syncytial Virus Not Detected (Not Detect)
[2019-09-23] MEDS: *HR* Metoprolol 5 MG/5 ML VIAL IVP PRN (22:17)
[2019-09-24 06:18] LABS: Basophils # 0.1 K/mcL (0.0-0.2); Basophils % 0.5 %; Eosinophils # 0.2 K/mcL (0.0-0.6); Eosinophils % 1.2 %; Hematocrit 30.1 % (35.3-44.9); Hemoglobin 9.6 g/dL (11.5-15.4); Immature Granulocytes % 0.8 % (0-4); Lymphocytes # 2.7 K/mcL (0.6-4.6); Lymphocytes % 16.4 %; Mean Corpuscular HGB Conc 31.9 g/dL (31.6-35.5); Mean Corpuscular Hemoglobin 27.9 pg (28.0-33.3); Mean Corpuscular Volume 87.5 fL (83.0-100.0); Mean Platelet Volume 10.2 fL (9.4-12.4); Monocytes # 1.3 K/mcL (0.0-1.3); Monocytes % 7.9 %; Neutrophils # 12.2 K/mcL (1.6-8.9); Platelet Count 406 K/mcL (140-400); Red Blood Count 3.44 M/mcL (3.82-4.97); Red Cell Distribution Width 14.2 % (11.5-14.5); Segmented Neutrophils % 73.2 %; White Blood Count 16.7 K/mcL (4.3-11.1)
[2019-09-24 06:47] LABS: BUN/Creatinine Ratio 19 (6-26); Blood Urea Nitrogen 13 mg/dL (8-23); Calcium 7.7 mg/dL (8.6-10.3); Carbon Dioxide 21 mEq/L (23-29); Chloride 111 mEq/L (98-107); Glucose 123 mg/dL (70-105); Osmolality,Calculated 287 (280-300); Potassium 4.3 mEq/L (3.5-5.1); Sodium 138 mEq/L (136-145); eGFR For African Americans > 60 (> 60); eGFR For Non-African Americans > 60 (> 60)
[2019-09-24] MEDS: Azithromycin 500 MG in 0.9 % Sodium Chloride 250 ML IVPB SCH (07:59)
[2019-09-24] MEDS: DilTIAZem CD (24hr) 180 MG CAP.ER.24H PO SCH (08:01)
[2019-09-24] MEDS: Piperacillin/Tazobactam 3.375 GM in 0.9 % Sodium Chloride Mini Bag 100 ML IVPB SCH ×3 (08:02→23:36)
[2019-09-24] MEDS: lisinopriL 20 MG TABLET PO SCH (08:02)
[2019-09-25 04:56] LABS: Basophils # 0.1 K/mcL (0.0-0.2); Basophils % 0.6 %; Eosinophils # 0.3 K/mcL (0.0-0.6); Hematocrit 26.2 % (35.3-44.9); Hemoglobin 8.5 g/dL (11.5-15.4); Immature Granulocytes % 0.7 % (0-4); Lymphocytes # 2.4 K/mcL (0.6-4.6); Lymphocytes % 17.1 %; Mean Corpuscular HGB Conc 32.4 g/dL (31.6-35.5); Mean Corpuscular Hemoglobin 28.8 pg (28.0-33.3); Mean Corpuscular Volume 88.8 fL (83.0-100.0); Monocytes # 1.1 K/mcL (0.0-1.3); Monocytes % 7.9 %; Platelet Count 367 K/mcL (140-400); Red Blood Count 2.95 M/mcL (3.82-4.97); Red Cell Distribution Width 14.1 % (11.5-14.5); Segmented Neutrophils % 71.7 %; White Blood Count 13.8 K/mcL (4.3-11.1)
[2019-09-25 05:15] LABS: BUN/Creatinine Ratio 19 (6-26); Blood Urea Nitrogen 11 mg/dL (8-23); Calcium 7.8 mg/dL (8.6-10.3); Carbon Dioxide 21 mEq/L (23-29); Chloride 109 mEq/L (98-107); Glucose 102 mg/dL (70-105); Osmolality,Calculated 286 (280-300); Potassium 3.8 mEq/L (3.5-5.1); Sodium 138 mEq/L (136-145); eGFR For African Americans > 60 (> 60); eGFR For Non-African Americans > 60 (> 60)
[2019-09-25] MEDS: Azithromycin 500 MG in 0.9 % Sodium Chloride 250 ML IVPB SCH (07:48)
[2019-09-25] MEDS: DilTIAZem CD (24hr) 180 MG CAP.ER.24H PO SCH (07:48)
[2019-09-25] MEDS: Piperacillin/Tazobactam 3.375 GM in 0.9 % Sodium Chloride Mini Bag 100 ML IVPB SCH ×2 (07:48→15:30)
[2019-09-25] MEDS: lisinopriL 20 MG TABLET PO SCH (08:03)
[2019-09-25] MEDS ORDERED: Fluconazole 200 MG/100 ML 100 MG/50 ML BAG IVPB SCH (09:00)
[2019-09-26] MEDS: Piperacillin/Tazobactam 3.375 GM in 0.9 % Sodium Chloride Mini Bag 100 ML IVPB SCH ×2 (00:10→08:19)
[2019-09-26 04:42] LABS: Basophils # 0.1 K/mcL (0.0-0.2); Basophils % 0.6 %; Eosinophils # 0.3 K/mcL (0.0-0.6); Eosinophils % 2.3 %; Hematocrit 25.7 % (35.3-44.9); Hemoglobin 8.6 g/dL (11.5-15.4); Immature Granulocytes % 0.8 % (0-4); Lymphocytes # 2.9 K/mcL (0.6-4.6); Lymphocytes % 21.4 %; Mean Corpuscular HGB Conc 33.5 g/dL (31.6-35.5); Mean Corpuscular Hemoglobin 29.4 pg (28.0-33.3); Mean Corpuscular Volume 87.7 fL (83.0-100.0); Mean Platelet Volume 9.8 fL (9.4-12.4); Monocytes % 7.2 %; Platelet Count 383 K/mcL (140-400); Red Blood Count 2.93 M/mcL (3.82-4.97); Red Cell Distribution Width 13.8 % (11.5-14.5); Segmented Neutrophils % 67.7 %; White Blood Count 13.3 K/mcL (4.3-11.1)
[2019-09-26] MEDS: Azithromycin 250 MG TABLET PO SCH (08:09)
[2019-09-26] MEDS: DilTIAZem CD (24hr) 180 MG CAP.ER.24H PO SCH (08:09)
[2019-09-26] MEDS: lisinopriL 20 MG TABLET PO SCH (08:09)
[2019-09-26] MEDS: Fluconazole 100 MG TABLET PO SCH (12:30)
[2019-09-27] MEDS: DilTIAZem CD (24hr) 180 MG CAP.ER.24H PO SCH (08:53)
[2019-09-27] MEDS: Fluconazole 100 MG TABLET PO SCH (08:53)
[2019-09-27] MEDS: Azithromycin 250 MG TABLET PO SCH (08:54)
[2019-09-27] MEDS: lisinopriL 20 MG TABLET PO SCH (08:54)
[2019-09-27 14:19] VITALS: BP 106/62
== END 2019-09-27 14:36 | DRG 871 ==
LOC: 3ANU → SUATTDRO 20:45
PROVIDERS: ADMIT Family Medicine; ATTEND Internal Medicine